=== PATIENT | female | born 1985 | race Caucasian/White ===

== ENCOUNTER 2022-08-07 01:44 | Emergency (ER) | payer OTHER, SELFPAY ==
[2022-08-07 01:48] VITALS: BP 133/82; PULSE 69; RESP 18; TEMP 36.2; O2SAT 98
--- NOTE | 2022-08-07 02:21 | ED.EYEPROB ---
HPI - Eye Problem General Chief complaint: Eye Problems Stated complaint: right eye itchy and red. Time Seen by Provider: 08/07/22 01:58 Source: patient and family Limitations: language barrier (Phone public information specialist used) History of Present Illness HPI Narrative: 37-year-old female with a history of leu-qqpukwq-todvigwbi type 2 diabetes presents to the emergency department with feeling of discomfort in her right eye. Symptoms started about an hour prior to arrival. She reports that she was shaking out a blanket when she suddenly felt pain in the right eye. Has been watering, itchy and uncomfortable since. She denies vision change. She does not think she feels any foreign body. No history of similar symptoms. No history of long-term eye problems. No fevers, headache or other areas of trauma. Otherwise feeling well. Has not tried any eyedrops or other interventions to help with her symptoms. She states her past medical history is only notable for type 2 diabetes. Her only long-term medication is metformin. Denies any prior eye surgeries. No pertinent travel, high risk occupational or home activities for foreign body, metal or infection. ROS is notable for other generalized, HEENT or skin concerns. Notable only for the ocular symptoms as above. Related Data Home Medications Medication Instructions Recorded Confirmed metformin 500 mg tablet,extended 2,000 mg PO DAILY 08/07/22 08/07/22 release 24 hr Allergies Allergy/AdvReac Type Severity Reaction Status Date / Time No Known Allergies Allergy Unknown Verified 08/07/22 01:52 [facility] Medical History (Updated 08/07/22 @ 02:20 by Mireille Alexander MD) Delivery normal (11/04/11) Gestational diabetes mellitus (11/04/11) Surgical History (Updated 01/13/22 @ 18:08 by Lucho Szymanski) History of tubal ligation (2013) Family History (Updated 01/13/22 @ 18:10 by Lucho Szymanski) Mother Heart disease Uterine cancer Father Type 2 diabetes mellitus Family/Other Type 2 diabetes mellitus Social History (Updated 01/13/22 @ 18:10 by Lucho Szymanski) Narrative: single, homemaker, 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, non-smoker, no EtOH Smoking Status: Never smoker How often do you have a drink containing alcohol: never AUDIT-C Alcohol total score: 0 Non-prescribed substance use: denies use Exam Const: Vital Signs, click to edit/add: Vital Signs - 24 hr 08/07/22 01:48 Temperature 97.1 F L Pulse Rate [Left P ulse Oximeter] 69 Respiratory Rate 18 Blood Pressure [Ri ght Upper Arm] 133/82 Pulse Oximetry 98 Documenting provider has reviewed patient's vital signs: yes Common normals: no apparent distress General appearance: cooperative, comfortable and well kempt HENMT: Common normals: normocephalic Head and scalp: normocephalic Face and sinus: normal facial exam Mouth: oral and palatal mucosa normal Eye: Common normals: PERRL and EOMs intact bilaterally Pupil: PERRL Other: Right eye with injected sclera. Conjunctiva with tattoo eye liner which does not appear fresh. Lids and lashes appear normal. On gross inspection, pupils, cornea, iris all normal in appearance. Irrigated with no signs of foreign body. Neck & C-Spine: Common normals: full ROM and no lymphadenopathy Resp: Common normals: normal respiratory effort Effort & inspection: able to speak in complete sentences Psych: Common normals: cooperative and affect normal Appearance: well kempt Skin: Common normals: no rashes or lesions noted General skin exam: no rashes or lesions noted Course Vital Signs Vital signs: Initial Vital Signs Temperature 97.1 F L 08/07/22 01:48 Temperature Source Temporal Artery Scan 08/07/22 01:48 Pulse Rate 69 08/07/22 01:48 Respiratory Rate 18 08/07/22 01:48 Blood Pressure 133/82 08/07/22 01:48 Blood Pressure Mean 99 08/07/22 01:48 Blood Pressure Position Sitting 08/07/22 01:48 Pulse Oximetry 98 08/07/22 01:48 Vital Signs Temperature 97.1 F L 08/07/22 01:48 Pulse Rate 69 08/07/22 01:48 Respiratory Rate 18 08/07/22 01:48 Blood Pressure 133/82 08/07/22 01:48 Pulse Oximetry 98 08/07/22 01:48 Temperature 97.1 F L 08/07/22 01:48 Pulse Rate 69 08/07/22 01:48 Respiratory Rate 18 08/07/22 01:48 Blood Pressure 133/82 08/07/22 01:48 Pulse Oximetry 98 08/07/22 01:48 MDM - Eye Problem MDM Narrative Medical decision making narrative: Procedure: Fluorescein stain. Verbal consent obtained. Right eye is examined with no signs of foreign body, irrigated with saline with no further signs of foreign body. Normal pupillary response and extraocular movements noted. Two drops of tetracaine were inserted in the eye and then fluorescein staining performed. A superficial, broad corneal abrasion is noted mostly on the lower cornea between 5 and 7 concentrating around 6 on the lower half of the pupil. It does appear quite superficial. No evidence of foreign body appreciated again. Additional sweep of the conjunctiva and I structures was performed with no further sign of foreign body. Eye was then irrigated with normal saline to remove . Patient did have improvement of pain from the tetracaine. Erythromycin ointment was applied and use discussed. Diagnosis: Corneal abrasion, mild superficial. Erythromycin 4 times daily for the next 24 hours. Counseled that this should close on its own. Okay to use Tylenol and ibuprofen as needed for discomfort. If not markedly improved in 24 hours, call [facility], contact information discussed. Patient verbalizes understanding and agreement. Alarm symptoms reviewed. Discharge Plan Discharge Clinical Impression: Abrasion, corneal Patient Disposition: Home w/ Parent or Adult Condition: Improved Instructions: Corneal Abrasion (DC) Additional Instructions: On exam, you have a small scratch on the outer layer of your eye, on the cornea. This either happen from the blanket or from a small foreign body that was on the blanket and flew into your eye when you shook the blanket. Thorough examination does not show any sign of foreign body still remaining in the eye. This is good news. The abrasion is not very deep, this should close on its own within 24 hours. It does need antibiotics. Your 1st dose was given here in the emergency department. Continue on this 4 times a day for 24 hours. Slightly blurry vision, sensitivity to light and achiness are common. It is okay to use Tylenol and/or ibuprofen to help with the discomfort. Things should be markedly better by Monday, if not, please call [facility] for an appointment. You may discontinue your antibiotics Monday if your symptoms have resolved. As we discussed, try to keep the antibiotic ointment in the Fridge as it becomes a little harder to use when it is warm. Activity Level: Activity as Tolerated Discharge Diet: Regular Prescriptions: No Action metformin 500 mg tablet extended release 24 hr 2,000 mg PO DAILY Follow Up/Referrals: So Tse MD [Primary Care Provider] - Stand Alone Forms: [employer] Info Instructions
[2022-08-07] MEDS: TETRACAINE 0.5% OPHTH 2 DROP EYE-RIGHT (02:25)
[2022-08-07] MEDS: ERYTHROMYCIN 1 GM TUBE 1 APPLIC EYE-BOTH (02:25)
== END 2022-08-07 02:49 | disposition home or self-care (01) ==
PROVIDERS: Emergency Provider Family Medicine; PCP Family Medicine
DX: S05.01XA Injury of conjunctiva and corneal abrasion without foreign body, right eye, initial encounter (principal)
CPT/HCPCS: 65222; 99282; 99283

== ENCOUNTER 2023-10-06 14:44 | Outpatient (REF) | payer OTHER, SELFPAY ==
--- NOTE | 2023-10-06 14:40 | MM_ITS ---
Patient: ELIZABETH LAN Facility:?[facility] Patient ID:?[id number] Site Patient ID:?[id number]. Site :?[id number] Study:?XRay-Breast Bilateral 3D W/CAD-10/06/2023 3:39:53 PM Ordering Physician:Morteza Final Report: BILATERAL SCREENING MAMMOGRAM WITH COMPUTER-AIDED DETECTION AND TOMOSYNTHESIS TECHNIQUE: CC and MLO views were obtained. These mammographic images have been obtained using full-field digital technique. These mammographic images were interpreted with the benefit of computer-aided detection. Breast Tomosynthesis was used in this interpretation. COMPARISON FILM: 02/11/22, 01/28/21. FINDINGS: There are scattered areas of fibroglandular density. IMPRESSION: There is no radiographic evidence for malignancy. ASSESSMENT: BI-RADS Category 1: Negative RECOMMENDATION: Routine screening mammogram in 1 year. A lay language report of this examination will be provided to the patient. Abdirashid Dela Cruz M.D. Diagnostic Radiologist [email or web address] DSM/sp R& Transcribed: 6:37 p.m. SP/Dictated by: Abdirashid Dela Cruz MD @ 10/09/2023 11:25:00 AM Signed by:?Abdirashid Dela Cruz MD @10/09/2023 8:47:22 PM (Electronic Signature)
--- OUTSIDE RECORDS SUMMARY | 2023-10-06 14:48 | XMS_ITS | Data Portability ---
Author Name Unknown Address [address] [place] [address] Phone [phone] Organization [place] - [employer]ene navarrete [facility] Address [address] [place] [id number] Assessment No assessment recorded. Plan of Treatment Reminders Order Date Submit Date Provider Last Modified By Organization Details Last Modified Time Details Appointments None recorded. Lab HbA1c (hemoglobi n A1c), blood 2023 024 [email or web address] 4 [facility], [address] [place] [address], [address], 4 16:27:31 microalbum in/creatin ine, mass ratio, urine 2023 024 [facility], [address] [place] [address], [address], 4 04:00:52 CBC 2022 023 [facility], [address] [place] [address], [address], 3 13:05:56 hemoglobin A1C/hemogl obin total, QN, blood 2022 023 [facility], [address] [place] [address], [address], 3 14:17:15 glycohemog lobin, total, blood 2022 023 [facility], [address] [place], [place], [address], 3 13:05:56 lipid panel, serum 2022 023 [facility], [address] [place] [address] [place], [address], 3 12:32:13 CBC 2022 023 [facility], [address] [place] [address] [place], [address], 3 12:32:14 lipid panel, serum 2022 023 [facility], [address] [place] [address] [place], [address], 3 16:32:50 HbA1c (hemoglobi n A1c), blood 2022 023 [facility], [address] [place] [address] [place], [address], 3 16:32:50 microalbum in/creatin ine, mass ratio, urine 2022 023 [facility], [address] [place] [address] [place], [address], 3 16:32:50 CMP, serum or plasma 2022 023 [facility], [address] [place] [address] [place], [address], 3 16:30:34 prolactin, serum 2021 022 [facility], [address] [place] [address] [place], [address], 2 09:08:27 glycohemog lobin, total, blood 2021 022 [facility], [address] [place] [address] [place], [address], 21:11:57 lipid panel, serum 2021 [facility], [address] [place] [address] [place], [address], 21:11:57 CBC 2021 [facility], [address] [place] [address] [place], [address], 21:11:57 microalbum in/creatin ine, mass ratio, urine 2021 [facility], [address] [place] [address] [place], [address], 23:56:54 glycohemog lobin, total, blood 2020 [facility], [address] [place] [address] [place], [address], 12:40:51 CBC w/ auto diff 2020 022 [facility], [address] [place] [address] [place], [address], 13:55:44 TSH, serum or plasma 2020 022 [facility], [address] [place] [address] [place], [address], 13:55:44 CBC w/ auto diff 2020 021 [facility], [address] [place] [address] [place], [address], 17:28:21 CMP, serum or plasma 2020 021 [facility], [address] [place], [address], 1 17:28:21 lipid panel, serum 2020 021 [facility], [address] [place], [place] [address], [address], 1 17:28:21 hemoglobin A1C/hemogl obin total, QN, blood 2020 021 [facility], [address] [place], [place] [address], [place], [address], 1 17:26:43 HbA1c (hemoglobi n A1c), blood 2019 020 [facility], [address] [place], [place] [address], [address], 0 14:47:23 CMP, serum or plasma 2019 020 [facility] Not available 0 13:39:58 CBC w/ auto diff 2019 020 [facility] Not available 0 13:39:58 glycohemog lobin, total, blood 2019 020 [facility] Not available 0 16:31:40 lipid panel, serum 2019 020 [facility] Not available 0 13:39:58 Referral optometris t referral 2022 023 Not available 3 11:20:58 community health worker referral 2022 023 Not available 3 21:08:07 community health worker referral - Could I please have an update on Lin's BGs in 2 weeks so we can see how she is responding to her medication increase? No need for other calls/chec k-ins at this time unless CHW believes otherwise. 2021 022 [email or web address] Not available 2 15:04:[address] referral - Please make an appointmen t for Lin to see Dr. Noriega at [facility] to discuss her ongoing heavy menstrual bleeding and 1.9cm polyp. The U/S was done at [facility] so the gyne should be able to review that. Lin is aware of the need for this appointmen t. Not urgent; can certainly wait until the new year. 2020 021 [email or web address] Not available 19:13:37 community care referral 2019 020 [email or web address] Catalina Rose, [facility] [place], [address], 0 16:47:19 community care referral 2019 020 [email or web address] Catalina Rose, [facility] [place], [address], 0 18:24:46 Procedures None recorded. Surgeries None recorded. Imaging MAMMO, screening, bilateral 2023 024 [facility] Not available 4 04:06:29 US, breast, unilateral - Single episode of pus and bloody nipple drainage. No pain. Normal clinical exam. 2021 022 [facility] Not available 2 14:37:58 MAMMO, diagnostic , digital, unilateral - Single episode of pus and bloody nipple drainage. No pain. Normal clinical exam. 2021 022 [facility] Not available 2 14:38:23 US, transvagin al 2020 021 [facility] Not available 1 12:26:12 Medication Orders metformin 500 mg tablet 2023 024 [facility], [address] [place] [address], [address], 4 14:40:10 glyburide 5 mg tablet [address], [address], 3 16:55:17 metformin 500 mg tablet [address], [address], 3 18:10:48 metformin ER 500 mg tablet,ext ended release 24 hr [address], [address], 3 16:55:08 ferrous sulfate 325 mg (65 mg iron) tablet [address], [address], 4 12:41:12 metformin ER 500 mg tablet,ext ended release 24 hr [address], [address], 3 16:55:08 clotrimazo le 1 % topical cream [address], [address], 4 12:41:20 naproxen 250 mg tablet [address], [address], 2 11:34:37 multivitam in with iron tablet [address] [place], [address], 1 12:56:49 Naprosyn 500 mg tablet 2020 021 [email or web address] [facility], [address] [place], [address], 1 13:10:26 metformin ER 500 mg tablet,ext ended release 24 hr 2019 020 [email or web address] Not available 3 16:55:08 aspirin 81 mg tablet,del ayed release 2019 020 [email or web address] Not available 2 12:22:59 metformin ER 500 mg tablet,ext ended release 24 hr 2019 020 [email or web address] Not available 3 16:55:08 Patient TargetsNo targets recorded. Patient Instructions Encounter Date Encounter Id Patient Instructions Last Modified By Organization Details Last Modified Time 11/15/2022 [id number] watch for low glucose with sweating or weakness, have juice on hand [email or web address] Not available 11/16/2022 12:30:43 07/01/2022 [id number] Home Blood Sugar Test: About This Test [email or web address] Not available 07/01/2022 12:09:51 01/26/2022 [id number] secreci??n del pez??n: instrucciones de cuidado - [nipple discharge: care instructions] [email or web address] Not available 01/26/2022 11:44:23 anemia: instrucciones de cuidado - [anemia: care instructions] [email or web address] Not available 01/26/2022 11:44:24 06/30/2021 [id number] 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 The pain itself is not significant. Given the cyclical, short, bilateral presentation, and absence of concerning exam findings, most likely the cause is due to her large breast size and upper body movement (musculoskeletal discomfort) as a result of the physical nature of her job. I told her it is unlikely that there is something of concern. She was advised to get a screening mammogram to be sure. Has f/u with another [facility] provider 01/19 for routine health follow-up/villa armstrong. [email or web address] Not available 01/01/2021 08:51:41 12/25/2019 [id number] go to clinic and sign information release naida Not available 12/25/2019 16:17:04 Reason for Referral Community Care Referral for Type 2 diabetes mellitus without complication patient newly diagnosed and needs glucometer Referring Physician: Renard Newell, Internal Medicine, Encounter Date: 12/25/2019 Community Care Referral for Essential hypertension has a glucometer, needs BP cuff, needs optometry referral for visual problems Referring Physician: Renard Newell, Internal Medicine, Encounter Date: 02/12/2020 Filter Changing Technician Referral for Ab normal uterine bleeding due to endometrial polyp Please make an appointment for Lin to see Dr. Noriega at [facility] to discuss her ongoing heavy menstrual bleeding and 1.9cm polyp. The U/S was done at [facility] so the gyne should be able to review that. Lin is aware of the need for this appointment. Not urgent; can certainly wait until the new year. Referring Physician: Shaina Sam, Family Medicine, Encounter Date: 05/05/2021 Community Health Worker Refe rral for Diabetes mellitus Could I please have an update on Lin's BGs in 2 weeks so we can see how she is responding to her medication increase? No need for other calls/check-ins at this time unless CHW believes otherwise. Referring Physician: Shaina Sam, Family Medicine, Encounter Date: 06/30/2021 Community Health Worker Refe rral for Type II diabetes mellitus uncontrolled Referring Physician: Mary Jo Freedman [facility], Internal Medicine, Encounter Date: 07/01/2022 Deployment Engineer Referral for Typ e II diabetes mellitus uncontrolled Referring Physician: Renard Newell, Internal Medicine, Encounter Date: 11/15/2022 Results Created Date Observation Date Name Description Value Unit Range Abnormal Flag LastModifiedBy Organization Detail LastModifiedTime 05/06/20 20 05/06/2020 HbA1c (hemo globi n A1c), blood hemoglobin A1C 9.8 high Not Available [place] [facility] [address] [place] [address] [place], [address], 05/08/2020 09:28:17 12/23/19 21 12/22/2020 CBC w/ auto diff creatinine 0.67 Not Available [facility] [address] [place] [address] [place], [address], 12/23/2020 17:28:21 12/23/19 21 12/22/2020 CBC w/ auto diff ALT 63 Not Available [facility] [address] [place] [address] [place], [address], 12/23/2020 17:28:21 12/23/19 21 12/22/2020 CBC w/ auto diff total cholesterol 165 Not Available [place] [facility] [address] [place] [address] [place], [address], 12/23/2020 17:28:21 12/23/19 21 12/22/2020 CBC w/ auto diff triglyceride s 130 Not Available [place] [facility] [address] [place] [address] [place], [address], 12/23/2020 17:28:21 12/23/19 21 12/22/2020 CBC w/ auto diff HDL 36 Not Available [facility] [address] [place] [address] [place], [address], 12/23/2020 17:28:21 12/23/19 21 12/22/2020 CBC w/ auto diff LDL 103 Not Available [facility] [address] [place] [address] [place], [address], 12/23/2020 17:28:21 12/23/19 21 12/22/2020 CBC w/ auto diff white blood count 5.7 Not Available [place] [facility] [address] [place] [address] [place], [address], 12/23/2020 17:28:21 12/23/19 21 12/22/2020 CBC w/ auto diff hemoglobin 11.3 Not Available [facility] [address] [place] [address] [place], [address], 12/23/2020 17:28:21 12/23/19 21 12/22/2020 CBC w/ auto diff platelet count 277 Not Available [place] [facility] [address] [place] [address] [place], [address], 12/23/2020 17:28:21 12/23/19 21 12/22/2020 lipid panel , serum creatinine 0.67 Not Available [facility] [address] [place] [address] [place], [address], 12/23/2020 17:28:21 12/23/19 21 12/22/2020 lipid panel , serum ALT 63 Not Available [facility] [address] [place] [address] [place], [address], 12/23/2020 17:28:21 12/23/19 21 12/22/2020 lipid panel , serum total cholesterol 165 Not Available [place] [facility] [address] [place] [address] [place], [address], 12/23/2020 17:28:21 12/23/19 21 12/22/2020 lipid panel , serum triglyceride s 130 Not Available [place] [facility] [address] [place] [address] [place], [address], 12/23/2020 17:28:21 12/23/19 21 12/22/2020 lipid panel , serum HDL 36 Not Available [facility] [address] [place] [address] [place], [address], 12/23/2020 17:28:21 12/23/19 21 12/22/2020 lipid panel , serum LDL 103 Not Available [facility] [address] [place] [address] [place], [address], 12/23/2020 17:28:21 12/23/19 21 12/22/2020 lipid panel , serum white blood count 5.7 Not Available [place] [address] [place] [address] [place], [address], 12/23/2020 17:28:21 12/23/19 21 12/22/2020 lipid panel , serum hemoglobin 11.3 Not Available [facility] [address] [place] [address] [place], [address], 12/23/2020 17:28:21 12/23/19 21 12/22/2020 lipid panel , serum platelet count 277 Not Available [facility] [address] [place] [address] [place], [address], 12/23/2020 17:28:21 12/23/1912/22/2020 CMP, serum or plasm a creatinine 0.67 Not Available [address] [place], [address], 12/22/2020 20:28:08 12/23/19 21 12/22/2020 CMP, serum or plasm a ALT 63 Not Available [facility] [address] [place] [address] [place], [address], 12/22/2020 20:28:08 12/23/1912/22/2020 CMP, serum or plasm a total cholesterol 165 Not Available [place] [facility] [address] [place] [address] [place], [address], 12/22/2020 20:28:08 12/23/19 21 12/22/2020 CMP, serum or plasm a triglyceride s 130 Not Available [place] [facility] [address] [place] [address] [place], [address], 12/22/2020 20:28:08 12/23/19 21 12/22/2020 CMP, serum or plasm a HDL 36 Not Available [facility] [address] [place] [address] [place], [address], 12/22/2020 20:28:08 12/23/19 21 12/22/2020 CMP, serum or plasm a LDL 103 Not Available [facility] [address] [place] [address] [place], [address], 12/22/2020 20:28:08 12/23/19 21 12/22/2020 CMP, serum or plasm a white blood count 5.7 Not Available [place] [facility] [address] [place] [address] [place], [address], 12/22/2020 20:28:08 12/23/19 21 12/22/2020 CMP, serum or plasm a hemoglobin 11.3 Not Available [facility] [address] [place] [address] [place], [address], 12/22/2020 20:28:08 12/23/19 21 12/22/2020 CMP, serum or plasm a platelet count 277 Not Available [place] [facility] [address] [place] [address] [place], [address], 12/22/2020 20:28:08 12/24/19 21 12/23/2020 hemog lobin A1C/h emogl obin total , QN, blood hemoglobin A1C 9.7 Not Available [place] [facility] [address] [place] [address] [address] [place], [address], 12/23/2020 17:08:18 06/30/19 22 06/30/2021 HbA1c (hemo globi n A1c), blood HbA1c 10.5 Not Available [facility] [address] [place], [address], 06/30/2021 12:49:46 06/30/19 22 06/30/2021 CBC w/ auto diff TSH value only 1.63 Not Available Not Available 13:55:44 06/30/19 22 06/30/2021 CBC w/ auto diff WBC 5.9 Not Available Not Available 06/22 13:55:44 06/30/19 22 06/30/2021 CBC w/ auto diff HGB 13.0 Not Available Not Available 06/22 13:55:44 06/30/19 22 06/30/2021 CBC w/ auto diff plt 244 Not Available Not Available 06/22 13:55:44 06/30/19 22 06/30/2021 TSH, serum or plasm a TSH value only 1.63 Not Available Not Available 12:22:14 06/30/19 22 06/30/2021 TSH, serum or plasm a WBC 5.9 Not Available Not Available 06/22 12:22:14 06/30/19 22 06/30/2021 TSH, serum or plasm a HGB 13.0 Not Available Not Available 06/22 12:22:14 06/30/19 22 06/30/2021 TSH, serum or plasm a plt 244 Not Available Not Available 06/22 12:22:14 02/12/20 22 02/11/2022 CBC total cholesterol 194 Not Available [place] [facility] [address] [facility] [place], [address], 02/13/2022 21:11:57 02/12/20 22 02/11/2022 CBC triglyceride s 158 high Not Available [place] [facility] [address] [facility] [place], [address], 02/13/2022 21:11:57 02/12/20 22 02/11/2022 CBC HDL 42 low Not Available [place] [facility] [address] [facility] [place], [address], 02/13/2022 21:11:57 02/12/20 22 02/11/2022 CBC LDL 120 high Not Available [place] [facility] [address] [place] [address] [place], [address], 02/13/2022 21:11:57 02/12/20 22 02/11/2022 CBC hemoglobin A1C 10.41 high Not Available [place] [facility] [address] [place] [address] [place], [address], 02/13/2022 21:11:57 02/12/20 22 02/11/2022 CBC white blood count 6.51 Not Available [place] [facility] [address] [place] [address] [place], [address], 02/13/2022 21:11:57 02/12/20 22 02/11/2022 CBC hemoglobin 224 Not Availa ble [place] [facility] [address] [place] [address] [place], [address], 02/13/2022 21:11:57 02/12/20 22 02/11/2022 CBC platelet count 12.9 Not Available [place] [facility] [address] [place] [address] [place], [address], 02/13/2022 21:11:57 02/12/20 22 02/11/2022 glyco hemog lobin , total , blood total cholesterol 194 Not Available [place] [facility] [address] [place] [address] [place], [address], 02/13/2022 21:11:57 02/12/20 22 02/11/2022 glyco hemog lobin , total , blood triglyceride s 158 high Not Available [place] [facility] [address] [place] [address] [place], [address], 02/13/2022 21:11:57 02/12/20 22 02/11/2022 glyco hemog lobin , total , blood HDL 42 low Not Available [facility] [address] [place], [address], 02/13/2022 21:11:57 02/12/20 22 02/11/2022 glyco hemog lobin , total , blood LDL 120 high Not Available [facility] [address] [place] [address] [place], [address], 02/13/2022 21:11:57 02/12/20 22 02/11/2022 glyco hemog lobin , total , blood hemoglobin A1C 10.41 high Not Available [place] [facility] [address] [place] [address] [place], [address], 02/13/2022 21:11:57 02/12/20 22 02/11/2022 glyco hemog lobin , total , blood white blood count 6.51 Not Available [place] [facility] [address] [place] [address] [place], [address], 02/13/2022 21:11:57 02/12/20 22 02/11/2022 glyco hemog lobin , total , blood hemoglobin 224 Not Available [facility] [address] [place] [address] [place], [address], 02/13/2022 21:11:57 02/12/20 22 02/11/2022 glyco hemog lobin , total , blood platelet count 12.9 Not Available [place] [facility] [address] [place] [address] [place], [address], 02/13/2022 21:11:57 02/12/20 22 02/11/2022 lipid panel , serum total cholesterol 194 Not Available [place] [facility] [address] [place] [address] [place], [address], 02/11/2022 14:18:40 02/12/20 22 02/11/2022 lipid panel , serum triglyceride s 158 high Not Available [place] [facility] [address] [place] [address] [place], [address], 02/11/2022 14:18:40 02/12/20 22 02/11/2022 lipid panel , serum HDL 42 low Not Available [facility] [address] [place] [address] [place], [address], 02/11/2022 14:18:40 02/12/20 22 02/11/2022 lipid panel , serum LDL 120 high Not Available [facility] [address] [place] [address] [place], [address], 02/11/2022 14:18:40 02/12/20 22 02/11/2022 lipid panel , serum hemoglobin A1C 10.41 high Not Available [place] [facility] [address] [place] [address] [place], [address], 02/11/2022 14:18:40 02/12/20 22 02/11/2022 lipid panel , serum white blood count 6.51 Not Available [place] [facility] [address] [place] [address] [place], [address], 02/11/2022 14:18:40 02/12/20 22 02/11/2022 lipid panel , serum hemoglobin 224 Not Available [facility] [address] [place] [address] [place], [address], 02/11/2022 14:18:40 02/12/20 22 02/11/2022 lipid panel , serum platelet count 12.9 Not Available [place] [facility] [address] [place] [address] [place], [address], 02/11/2022 14:18:40 07/07/19 23 07/07/2022 micro album in/cr eatin ine, mass ratio , urine creatine 0.4 Not Available [facility] [address] [place] [address] [place], [address], 07/07/2022 16:32:50 07/07/19 23 07/07/2022 micro album in/cr eatin ine, mass ratio , urine ALT 39 Not Available [facility] [address] [place] [address] [place], [address], 07/07/2022 16:32:50 07/07/19 23 07/07/2022 micro album in/cr eatin ine, mass ratio , urine total cholesterol 200 high Not Available [place] [facility] [address] [place] [address] [place], [address], 07/07/2022 16:32:50 07/07/19 23 07/07/2022 micro album in/cr eatin ine, mass ratio , urine triglyceride s 176 high Not Available [place] [facility] [address] [place] [address] [place], [address], 07/07/2022 16:32:50 07/07/19 23 07/07/2022 micro album in/cr eatin ine, mass ratio , urine HDL 38 low Not Available [facility] [address] [place] [address] [place], [address], 07/07/2022 16:32:50 07/07/19 23 07/07/2022 micro album in/cr eatin ine, mass ratio , urine LDL 127 high Not Available [facility] [address] [place] [address] [place], [address], 07/07/2022 16:32:50 07/07/19 23 07/07/2022 micro album in/cr eatin ine, mass ratio , urine A1C hemoglobin 8.79 high Not Available [place] [facility] [address] [place] [address] [place], [address], 07/07/2022 16:32:50 07/07/19 23 07/07/2022 micro album in/cr eatin ine, mass ratio , urine microalbumin ratio 320 high Not Available [place] [facility] [address] [place] [address] [place], [address], 07/07/2022 16:32:50 07/07/19 23 07/07/2022 HbA1c (hemo globi n A1c), blood creatine 0.4 Not Available [facility] [address] [facility] [place], [address], 07/07/2022 16:32:50 07/07/19 23 07/07/2022 HbA1c (hemo globi n A1c), blood ALT 39 Not Available [facility] [place], [address], 07/07/2022 16:32:50 07/07/19 23 07/07/2022 HbA1c (hemo globi n A1c), blood total cholesterol 200 high Not Available [place] [facility] [place], [address], 07/07/2022 16:32:50 07/07/19 23 07/07/2022 HbA1c (hemo globi n A1c), blood triglyceride s 176 high Not Available [place] [facility] [place], [address], 07/07/2022 16:32:50 07/07/19 23 07/07/2022 HbA1c (hemo globi n A1c), blood HDL 38 low Not Available [facility] [place], [address], 07/07/2022 16:32:50 07/07/19 23 07/07/2022 HbA1c (hemo globi n A1c), blood LDL 127 high Not Available [facility] [place], [address], 07/07/2022 16:32:50 07/07/19 23 07/07/2022 HbA1c (hemo globi n A1c), blood A1C hemoglobin 8.79 high Not Available [place] [facility] [place], [address], 07/07/2022 16:32:50 07/07/19 23 07/07/2022 HbA1c (hemo globi n A1c), blood microalbumin ratio 320 high Not Available [place] [facility] [address] [place] [address] [place], [address], 07/07/2022 16:32:50 07/07/19 23 07/07/2022 lipid panel , serum creatine 0.4 Not Available [facility] [address] [place] [address] [place], [address], 07/07/2022 16:32:49 07/07/19 23 07/07/2022 lipid panel , serum ALT 39 Not Available [facility] [address] [place] [address] Mack Hallibabob CARL[place], [address], 07/07/2022 16:32:49 07/07/19 23 07/07/2022 lipid panel , serum total cholesterol 200 high Not Available [facility] [address] [place] [address] Mack Nixonibault CARLOS, [address], 07/07/2022 16:32:49 07/07/19 23 07/07/2022 lipid panel , serum triglyceride s 176 high Not Available [place] [facility] [address] [place] [address] Mack Hallibabob CARLOS, [address], 07/07/2022 16:32:49 07/07/19 23 07/07/2022 lipid panel , serum HDL 38 low Not Available [facility] [address] [place] [address] Mack HallCARLOS [place], [address], 07/07/2022 16:32:49 07/07/19 23 07/07/2022 lipid panel , serum LDL 127 high Not Available [facility] [address] [place] [address] Mack Nixonibabob CARLOS, [address], 07/07/2022 16:32:49 07/07/19 23 07/07/2022 lipid panel , serum A1C hemoglobin 8.79 high Not Available [place] [facility] [address] [place] [address] Mack NixonCARLOS [place], [address], 07/07/2022 16:32:49 07/07/19 23 07/07/2022 lipid panel , serum microalbumin ratio 320 high Not Available [address] [place], [address], 07/07/2022 16:32:49 07/07/19 23 07/07/2022 CMP, serum or plasm a creatine 0.4 Not Available [address] [place], [address], 07/07/2022 10:48:17 07/07/19 23 07/07/2022 CMP, serum or plasm a ALT 39 Not Available [address] [place], [address], 07/07/2022 10:48:17 07/07/19 23 07/07/2022 CMP, serum or plasm a total cholesterol 200 high Not Available [address] [place], [address], 07/07/2022 10:48:17 07/07/19 23 07/07/2022 CMP, serum or plasm a triglyceride s 176 high Not Available [address] [place], [address], 07/07/2022 10:48:17 07/07/19 23 07/07/2022 CMP, serum or plasm a HDL 38 low Not Available [address] [place], [address], 07/07/2022 10:48:17 07/07/19 23 07/07/2022 CMP, serum or plasm a LDL 127 high Not Available [address] [place], [address], 07/07/2022 10:48:17 07/07/19 23 07/07/2022 CMP, serum or plasm a A1C hemoglobin 8.79 high Not Available [place] [facility] [address] [place], [address], 07/07/2022 10:48:17 07/07/19 23 07/07/2022 CMP, serum or plasm a microalbumin ratio 320 high Not Available [place] [facility] [address] [facility] [place], [address], 07/07/2022 10:48:17 01/28/20 23 01/27/2023 CBC total cholesterol 171 Not Available [facility] [address] [place], [address], 01/27/2023 12:32:14 01/28/20 23 01/27/2023 CBC triglyceride s 199 high Not Available [facility] [address] [place], [address], 01/27/2023 12:32:14 01/28/20 23 01/27/2023 CBC HDL 34 low Not Available [facility] [address] [place], [address], 01/27/2023 12:32:14 01/28/20 23 01/27/2023 CBC LDL 97 Not Available [facility] [address] [place], [address], 01/27/2023 12:32:14 01/28/20 23 01/27/2023 lipid panel , serum total cholesterol 171 Not Available [facility] [address] [place], [address], 01/27/2023 11:14:31 01/28/20 23 01/27/2023 lipid panel , serum triglyceride s 199 high Not Available [facility] [address] [place], [address], 01/27/2023 11:14:31 01/28/20 23 01/27/2023 lipid panel , serum HDL 34 low Not Available [facility] [address] [place], [address], 01/27/2023 11:14:31 01/28/20 23 01/27/2023 lipid panel , serum LDL 97 Not Available [facility] [address] [place], [address], 01/27/2023 11:14:31 01/28/20 23 01/27/2023 glyco hemog lobin , total , blood WBC 6.35 Not Available [facility] [address] [place], [address], 01/27/2023 13:05:56 01/28/20 23 01/27/2023 glyco hemog lobin , total , blood HGB 12.2 Not Available [facility] [address] [place], [address], 01/27/2023 13:05:56 01/28/20 23 01/27/2023 glyco hemog lobin , total , blood plt 252 Not Available [facility] [address] [place], [address], 01/27/2023 13:05:56 01/28/20 23 01/27/2023 CBC WBC 6.35 Not Available [facility] [address] [place], [address], 01/27/2023 11:49:25 01/28/20 23 01/27/2023 CBC HGB 12.2 Not Available [facility] [address] [place], [address], 01/27/2023 11:49:25 01/28/20 23 01/27/2023 CBC plt 252 Not Available [facility] [address] [place], [address], 01/27/2023 11:49:25 01/28/20 23 01/27/2023 hemog lobin A1C/h emogl obin total , QN, blood A1C 8.14 high Not Available [facility] [address] [place], [address], 01/27/2023 14:11:01 01/31/20 21 01/28/2021 MAMMO , diagn ostic , bilat eral No observ ation record ed. [address] Radiology Department [address] [place], [address], 03/08/2021 14:04:54 04/13/20 21 03/19/2021 US, trans vagin al No observ ation record ed. [address] Radiology Department [address] [place], [address], 05/05/2021 12:58:17 02/12/20 22 02/11/2022 US, breas t, unila teral No observ ation record ed. [address] Radiology Department [address] [place], [address], 02/14/2022 17:04:37 02/12/20 22 02/11/2022 MAMMO , diagn ostic , digit al, unila teral No observ ation record ed. [address] Radiology Department [address] [place], [address], 02/14/2022 17:04:38 Result Notes None recorded. Problems Name Status Onset Date Resolution Date Notes Provider Name and Address Organization Details Recorded Time Scattered fibroglandula r densities Active 2020 Assoc w/ breast pain. Mammo WNL 01/28/21. Recommend age-appropria te screening. Shaina Sam NP [address] [place], [address], [employer] 2 11:55:49 Diabetes mellitus Completed 202001/26/2022 Removal Reason: Uncontrolled now. Shaina Sam NP [address] [place], [address], [employer] 2 11:56:01 Anemia Active 2020 Shaina Sam NP [address] [place], [address], [place] [facility] 2 11:55:01 Menorrhagia Completed 202001/26/2022 Resolved with Lng IUD Placement. Shaina Sam NP [address] [facility] [place], [address], [facility] 2 11:55:23 Obesity Active 2020 Shaina Sam NP [address] [facility] [place], [address], [facility] 2 11:55:39 Polyp of corpus uteri Active 2020 Shaina Sam NP [address] [place], [address], [facility] 1 12:55:34 Type II diabetes mellitus uncontrolled Active 2021 Shaina Sam NP [address] [place], [address], [facility] 2 11:55:06 Discharge from nipple Active 2021 Shaina Sam NP [address] [place], [address], [facility] 2 11:55:36 Type 2 diabetes mellitus Active 2022 Renard Newell MD [address] [place], [address], [facility] 15:31:10 Problem Notes None recorded. Procedures Surgical History Date Name Laterality Status Provider Name and Address Organization Details Recorded Time 04/08/2019 Date of Last Pap Smear completed Elaine Dumont, LIANET [address] [place], [address], [facility] 02/01/2021 14:02:03 Imaging Results Imaging Date Name Status LastModified by Organization Details LastModified Time 01/28/2021 MAMMO, diagnostic, bilateral completed [address] Radiology Department [address] [place], [address], 03/08/2021 14:04:54 03/19/2021 US, transvaginal completed [email or web address] Radiology Department [address] [place], [address], 05/05/2021 12:58:17 02/11/2022 US, breast, unilateral completed [email or web address] Radiology Department [address] [place], [address], 02/14/2022 17:04:37 02/11/2022 MAMMO, diagnostic, digital, unilateral completed [address] Radiology Department [address] [place], [address], 02/14/2022 17:04:38 Procedure Notes None recorded. Medical Equipment None Reported. Allergies No known drug allergies Medications Name Sig Start Date Stop Date Status Note LastModified by Organization Details LastModified Time tab-a-vit e/iron tabs TAKE ONE TABLET BY MOUTH EVERY DAY 06/30 completed Not Available Not Available Not Available Mirena 21 mcg/24 hr (up to 8 years) 52 mg intrauter ine device Take by intraute rine route. 2020 active Not Available Not Available Not Avai lable metformin 500 mg tablet TAKE 2 TABLETS BY MOUTH TWICE A DAY. active Not Available Not Available No t Available Aviane 0.1 mg-20 mcg tablet take 1 tablet by oral route every day 11/19 completed Not Available Not Available Not Available atorvasta tin 10 mg tablet take 1 tablet by oral route every day 04/08 completed Not Available Not Available Not Available glyburide 5 mg tablet TAKE 1 TABLET BY MOUTH EVERY DAY active Not Available Not Available No t Available naproxen 250 mg tablet TAKE 2 TABLETS BY MOUTH AT ONSET OF MENSES THEN 1 TABLET TWICE DAILY FOR 1ST 5 DAYS OF MENSES. TAKE WITH FOOD AND WATER 01/26 completed Not Available Not Available Not Available ciproflox acin 250 mg tablet TAKE ONE TABLET BY MOUTH TWICE A DAY FOR 5 DAYS 03/08 completed Not Available Not Available Not Available sulfameth oxazole 800 mg-trimet hoprim 160 mg tablet 05/01 completed Not Available Not Available Not Available aspirin 81 mg tablet,de layed release TAKE ONE TABLET BY MOUTH EVERY DAY 06/30 completed Not Available Not Available Not Available Detrol 1 mg tablet take 1 tablet by oral route 2 times every day 01/12 completed Not Available Not Available Not Available mefenamic acid 250 mg capsule take 2 capsule by oral route once once followed by 1 capsule (250 mg) every 6 hours as needed usually not to exceed 3 days 01/12 completed Not Available Not Available Not Available metformin ER 500 mg tablet,ex tended release 24 hr TAKE FOUR TABLETS BY MOUTH ONCE A DAY 02/07 completed Not Available Not Available Not Available naproxen 500 mg tablet TAKE ONE TABLET BY MOUTH TWICE A DAY 03/08 completed Not Available Not Available Not Available multivita min with iron tablet Take 1 tablet every day by oral route. 05/05 completed Not Available Not Available Not Available nitrofura ntoin monohydra te/macroc rystals 100 mg capsule 03/08 completed Not Available Not Available Not Available Athlete's Foot (clotrima zole) 1 % topical cream APPLY TO THE AFFECTED AND SURROUND ING AREAS OF SKIN BY TOPICAL ROUTE 2 TIMES PER DAY IN THE MORNING AND EVENING 07/23 completed not using anymore Not Available Not Available Not Available FeroSul 325 mg (65 mg iron) tablet TAKE 1 TABLET EVERY DAY BY ORAL ROUTE. 07/23 completed not taking anymore Not Available Not Available Not Available Vitals Date Recorded Body weight Systolic blood pressure Diastolic blood pressure Provider Name and Address Organization Details Last Updated DateTime 12/07/2020 00152.29 g 123 mm[Hg] 80 mm[Hg] Renard Newell MD [address] [place], [address], [place] [employer] 12/07/2020 17:08:05 Date Recorded Body weight Systolic blood pressure Diastolic blood pressure Provider Name and Address Organization Details Last Updated DateTime 06/30/2021 532165.28 g 110 mm[Hg] 70 mm[Hg] Shaina Sam NP [address] [place], [address], [facility] 06/30/2021 12:28:44 Date Recorded Body temperature Heart rate Body weight Body mass index (BMI) Body height Systolic blood pressure Diastolic blood pressure Provider Name and Address Organization Details Last Updated DateTime 2 97.4 [degF] 91 /min 883071. 09 g 45.7 kg/m2 157.48 cm 111 mm[Hg] 69 mm[Hg] Shaina Sam NP [address] [place], [address], [facility] 2 11:38:51 Date Recorded Body height Body temperature Respiratory rate Heart rate Body mass index (BMI) Body weight Systolic blood pressure Diastolic blood pressure Provider Name and Address Organization Details Last Updated DateTime 3 157.48 cm 97.4 [degF] 18 /min 77 /min 44.4 kg/m2 363335. 95 g 94 mm[Hg] 65 mm[Hg] MARY JO HELMS MD [address] [place], [address], [facility] 3 12:07:00 Date Recorded Body height Body mass index (BMI) Body weight Heart rate Systolic blood pressure Diastolic blood pressure Provider Name and Address Organization Details Last Updated DateTime 3 157.48 cm 45 kg/m2 308282. 44 g 69 /min 116 mm[Hg] 70 mm[Hg] Lisa Lechuga [facility] 3 17:42:30 Date Recorded Body height Body mass index (BMI) Body weight Oxygen saturation Oxygen saturation in Arterial blood by Pulse oximetry Heart rate Systolic blood pressure Diastolic blood pressure Provider Name and Address Organization Details Last Updated DateTime 4 154.25 cm 47.5 kg/m2 643295. 58 g 97 % 97 % 76 /min 116 mm[Hg] 73 mm[Hg] ALYCIA Armstrong [address] [place], [address], [facility] 4 12:34:41 Date Recorded Systolic blood pressure Diastolic blood pressure Provider Name and Address Organization Details Last Updated DateTime 02/16/2015 101 mm[Hg] 60 mm[Hg] Not Available [facility] 12/09/2019 12:57:37 Date Recorded Systolic blood pressure Diastolic blood pressure Provider Name and Address Organization Details Last Updated DateTime 12/17/2014 104 mm[Hg] 65 mm[Hg] Not Available [facility] 12/09/2019 12:57:37 Date Recorded Systolic blood pressure Diastolic blood pressure Provider Name and Address Organization Details Last Updated DateTime 07/01/2015 108 mm[Hg] 78 mm[Hg] Not Available [facility] 0 12/09/2019 12:57:38 Date Recorded Systolic blood pressure Diastolic blood pressure Provider Name and Address Organization Details Last Updated DateTime 04/13/2015 109 mm[Hg] 67 mm[Hg] Not Available [facility] 0 12/09/2019 12:57:38 Date Recorded Systolic blood pressure Diastolic blood pressure Provider Name and Address Organization Details Last Updated DateTime 11/19/2018 117 mm[Hg] 72 mm[Hg] Not Available [facility] 12/09/2019 12:57:38 Date Recorded Systolic blood pressure Diastolic blood pressure Provider Name and Address Organization Details Last Updated DateTime 03/26/2019 118 mm[Hg] 71 mm[Hg] Not Available [facility] 12/09/2019 12:57:38 Date Recorded Systolic blood pressure Diastolic blood pressure Provider Name and Address Organization Details Last Updated DateTime 04/08/2019 126 mm[Hg] 64 mm[Hg] Not Available [facility] 0 12/09/2019 12:57:38 Date Recorded Systolic blood pressure Diastolic blood pressure Provider Name and Address Organization Details Last Updated DateTime 01/12/2015 94 mm[Hg] 64 mm[Hg] Not Available [facility] 12:57:38 Date Recorded Systolic blood pressure Diastolic blood pressure Provider Name and Address Organization Details Last Updated DateTime 12/23/2013 98 mm[Hg] 60 mm[Hg] Not Available [facility] 12:57:38 Social History Question Answer Notes LastModified by Organizat ion Details LastModified Time Tobacco Smoking Status Never Smoker Shaina Sam, [employer] [address] [place], [address], [facility] 01/26/2022 11:59:00 What Is Your Level Of Alcohol Consumption? None [email or web address] Information not available 01/26/2022 Are You Currently Employed? Yes Information not available 01/26/2022 Who Is Your Employer? [employer]. Information not available 01/26/2022 Sex: Female Functional Status None recorded. Mental Status None recorded. Family History Relationship Description Onset Age of this Age Resolved Age Notes Father Diabetes mellitus di ed of dm Brother Diabetes mellitus Sister Diabetes mellitus Daughter Diabetes mellitus Mother Hypertensive disorder Mother Malignant neoplasm o f uterus 35 Medical History No medical history recorded. Gynecological History Statement/Question Response Menses Monthly N Date of Last Pap Smear 04/08/2019 Current Control Method IUD Obstetrics History GPAL:G 0 P 0 0 0 0 Past Encounters Encounter ID Performer Location Encounter Start Date Encounter Closed Date Diagnosis/Indication Diagnosis SNOMED-CT Code [id number] Renard Newell MD [facility] [address] [place] [address] 12/25/2019 15:29:51 01/01/2020 14:53:25 Type 2 diabetes mellitus without complication 859432039 [id number] Renard Newell MD [facility] [address] [place] [address] 01/13/2020 16:34:23 01/13/2020 18:21:38 Type 2 diabetes mellitus without complication 347512153 Type 2 eunice betes mellitus 63549563 Diabetes mellitus 101168 09 [id number] Elaine Dumont NP [facility] [address] [place] [address] 02/10/2020 11:26:40 02/10/2020 14:15:04 [id number] Renard Newell MD [facility] [address] [place] [id number] 02/12/2020 14:05:27 02/12/2020 15:51:37 Type 2 diabetes mellitus without complication 134748844 Essential hypertension 40951034 [id number] Renard Newell MD [facility] [address] [place] [address] 05/19/2020 17:26:06 05/19/2020 19:28:32 Type 2 diabetes mellitus without complication [id number] Renard Newell MD [facility] [address] [place] [address] 06/16/2020 17:49:56 06/16/2020 19:55:06 Type 2 diabetes mellitus without complication 312746529 [id number] [facility] [address] [place] [address] 12/07/2020 15:00:18 12/07/2020 19:08:39 Pain in left knee [id number] SHANTANU BANUELOS, [facility] [address] [place] [address] [facility] [id number] 12/31/2020 10:22:34 12/31/2020 11:14:50 Mastodynia of bilateral breasts 3395823507845 9109 Pain of breast 33486600 [id number] Shaina Sam NP [facility] [address] [place] [id number] 03/08/2021 12:06:32 03/08/2021 13:23:07 Menorrhagia 116091361 Diabetes mellitus 144430 09 Scattered fibroglandular densities 273503236 [id number] Shaina Sam NP [facility] [address] [place] [address] 05/05/2021 11:54:21 05/05/2021 18:01:48 Abnormal uterine bleeding due to endometrial polyp 4453595388865 9103 Type 2 eunice betes mellitus 97791444 Anemia 530196397 [id number] Shaina Sam NP [facility] [address] [place] [id number] 06/30/2021 11:59:45 10/11/2021 16:45:53 Menorrhagia 735929717 Tinea pedis 0200337 Diabetes mellitus 312977 09 Anemia 490094407 Obesity 533857378 Loss of hair 942919631 [id number] Shaina Sam NP [facility] [address] [place] [address] 01/26/2022 11:26:21 01/26/2022 12:22:49 Discharge from nipple 60259230 Anemia 670375752 Type II di abetes mellitus uncontrolled 125236907 [id number] MARY JO HELMS MD [facility] [address] [place] [address] 07/01/2022 11:42:01 07/01/2022 12:18:09 Type II diabetes mellitus uncontrolled 807340009 Diabetes mellitus 061441 09 Hyperglyce jenelle due to type 2 diabetes mellitus 9810447258338 09 [id number] Renard Newell MD [facility] [address] [place] [address] 11/15/2022 17:38:00 11/15/2022 18:11:25 Type II diabetes mellitus uncontrolled 980227318 Microalbuminuria 5749418 06 Anemia 049046567 [id number] ALYCIA Armstrong [facility] [address] [place] [address] 07/24/2023 12:26:23 07/24/2023 13:02:15 Type 2 diabetes mellitus 40546777 Microalbum inuria due to type 2 diabetes mellitus 5748018659862 2 Screening for malignant neoplasm of breast 818075985 Health Concerns Section Related Observation LastModified by Organization Detai ls LastModified Time None Recorded Concern Status LastModified by Organization Details LastModified Time None Recorded Advance Directives Directive None Recorded Payers Encounter Date Sequence Insurance Name Policy Number Policy Kennedy Covered Member ID Kennedy Member ID Guarantor Name 07/24/2023 [employer] S[employer] - [place] [employer] Lin Pozo [id number] Lin Pozo 11/15/2022 SLIDING FEE SCHEDULE - DISCOUNT Lin Pozo 07/01/2022 SLIDING FEE SCHEDULE - DISCOUNT Lin Pozo 01/26/2022 SLIDING FEE SCHEDULE - DISCOUNT Lin Pozo 06/30/2021 SLIDING FEE SCHEDULE - DISCOUNT Lin Pozo 05/05/2021 SLIDING FEE SCHEDULE - DISCOUNT Lin Pozo 03/08/2021 SLIDING FEE SCHEDULE - DISCOUNT Lin Pozo 12/31/2020 SLIDING FEE SCHEDULE - DISCOUNT Lin Pozo 12/07/2020 SLIDING FEE SCHEDULE - DISCOUNT Lin Pozo 06/16/2020 SLIDING FEE SCHEDULE - DISCOUNT Lin Pozo 05/19/2020 SLIDING FEE SCHEDULE - DISCOUNT Lin Pozo 02/12/2020 SLIDING FEE SCHEDULE - DISCOUNT Lin Pozo 02/10/2020 SLIDING FEE SCHEDULE - DISCOUNT Lin Pozo 01/13/2020 SLIDING FEE SCHEDULE - DISCOUNT Lin Pozo 12/25/2019 SLIDING FEE SCHEDULE - DISCOUNT Lin Lawrence Pozo Notes Date Note Type Note Provider Name and Address Organization Details Recorded Time 12/25/2019 text/html HPI Notes: went to ER in [place], six children requesting glucometer Renard Newell MD [address] [place] [address], [phone], [facility] 01/13/2020 17:51:02 01/13/2020 text/html HPI Notes: has a glucometer, readings around 150, has booklet Renard Newell MD [address] [place] [address], [address], [facility] 01/13/2020 18:13:26 02/12/2020 text/html HPI Notes: has b een dieting, exercising, six children, PAP about a year ago, paredes had tubal Renard Newell MD [address] [place] [address], [phone], [facility] 02/12/2020 15:19:39 05/19/2020 text/html HPI Notes: compl ains of fatigue, six children at home (15, 16. 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 Notes: Pt presents with bilateral mastodynia. Waxes and wanes over the last month. She works at a [employer] plant where she is very active with her upper body. No discharge or lumps noted. SHANTANU BANUELOS, ANP-BC [address] [place], [address], [facility] 01/01/2021 08:51:48 03/08/2021 text/html HPI Notes: Saida chacko is a American-speaking 36 year old woman who presents today to review her recent UTIs and increasingly heavy menstrual periods. Dwain has T2DM and is cared for by Dr. Newell. Over December and January, Lin was seen in the [place] ER 3 times for UTI symptoms. After her third visit for recurrent symptoms she was given Cipro with good resolution of symptoms. Lin's other concern are increasingly heavy menstrual periods x 1-2 years. Hgb 12/2020 11.2mg/dl with MCV 78. She reports monthly periods that last 7 days with very heavy day #1-2 with clots; changing pad up to ever hour. Cramping is tolerable. Takes no meds for this. No change in vaginal discharge, no foul smell, no spotting. No dyspareunia. Patient has ESSURE. Medications and labs reviewed: Very mild iron deficiency anemia in December 2020. A1C is out of control at 9.7% in December. Last visit for DM 12/09. Of note, patient began taking Aspirin 1 year ago for CVD protection. No history of blood clot or other coagulopathy. Shaina Sam, LIANET [address] [place], [address], [facility] 03/09/2021 13:22:23 05/05/2021 text/html HPI Notes: Saida chacko is a American-speaking 36 year old woman who presents today via phone to review her recent pelvic U/S done for heavy menstrual bleeding. Today's visit scheduled in person but patient did not have access to transportation. TSH and CBC scheduled at [facility] have not yet been done. Jennifer Avila will following up on this to schedule at [facility]. Lin had a period 04/21 that was safety counselor after stopping ASA. This menses only lasted 4 days. Pelvic U/S done at [facility] 03/19 shows a 1.9cm polyp which is likely contributing to these heavy periods Diabetes is mook per patient. She has been taking her BGs: 110s in am, 160s-170s in afternoon. Dr. Newell cares for Lin's diabetes. No more UTIs. Shaina Sam NP [address] [place], [address], [facility] 05/05/2021 12:57:23 06/30/2021 text/html HPI Notes: Diabe kristin Reported by patient. Review finger sticks: fastin; post breakfast: 140; Does not take after largest meal Duration: chronic Control: worsened since last visit; hemoglobin A1C has been greater than 9 Compliance: compliant with medications; compliant with follow-up visits; no side effects from medications Associated Symptoms: no dizziness; no increased thirst; weight gain (50 lbs) Notes: 50# weight gain per Adry although patient does not believe she has gained so much. Lin is a American-speaking 36 year old woman who presents today to review her DM2. She wishes to establish DM2 care with me. She has formerly been followed by my colleague Dr. Newell. POCT A1C today is 10.7%. This is not consistent with her home BGs; however, she takes these typically fasting or after breakfast. Lin is scheduled to see oven roaster Dr. Ontiveros in our clinic tomorrow, 07/01/21, to review her endometrial polyp. TSH and CBC scheduled at [facility] have not yet been done. We can do these. Lin is experiencing weight gain and hair thinning so I am eager to see these labs. Tolerating Metformin well. Naproxen with menses is helping. However, patient continues to have intermenstrual bleeding. Things are home are more stressful than normal; her 16 year old daughter is . 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 Monday (4 days ago): noticed right nipple pain while putting on bra. Noticed a small amount of white discharge on her nipple and when she expressed her breast, a small (teaspoon-sized) amount of blood and pus came out. No foul smell. This has not happened since. Has never happened before. Continuing to have sharp, intermittent bilateral breast pain. Has not noticed any lumps, skin changes, rashes. 01/28/21 Bilateral mammogram done for breast pain was normal. Feels otherwise well. No fevers. Mirena LnG in place. Home BGs are 118 - 160mg/dl, 160 postprandial. Still just taking 2 Metformin; did not increase to 3 ass planned. Has missed appointments here and has not answered our CHW's phone calls trying to obtain status reports and provide support. Had MIrena placed this year. Having rare spotting. All kids now in school. Spending days caring for infant granddaughter. Daughter is finishing out HS. Shaina Sam NP [address] [place], [address], [facility] 01/26/2022 13:28:18 07/01/2022 text/html HPI Notes: DM f/ u. Last A12 from Jan 2022: we.4. Lipids done same time. Total chol 194; Due for A1C, urine microalbumin, BMP Meds: metformin Checking BG? not as her machine broke. no new symotoms MARY JO HELMS MD [address] [place], [address], [facility] 07/01/2022 12:10:03 07/24/2023 text/html HPI Notes: Saida chacko presents today for DM f/u This is her first visit with this provider Last visit was in October [address] Newell Checks BG at home in the AM: This morning it was 155. Usually varies between about 130-60 Denies episodes of hyper or hypo glycemia. Denies polydipsia, polyuria. Reports she tries to eat well, reduces bread, tortillas. increase veggies No regular exercise, occasionally walks Takes care of children in the home Current medications: - glyburide 5mg -metformin 500mg b.i.d. Says has tried higher doses in past and got some headaches Last A1C: 9.9 (04/2023) Renal function: WNL (Scr 0.4), 07/14 Lipids: total chol: 171, tri 199, HDL 34; LDL 97 ()01/2023) Urine microalbumin: high (320) 07/14 Eye exam: due Foot exam: had at end of 2022, pt reports no issues Preventative screening: - cervical ca :2018. Negative. Due 03/2024 - breast ca: last done 01/2022 (diagnostic 06/23 to nipple d/c, all normal). Due for screening mammo ALYCIA Armstrong [address] [place], [address], [facility] 07/24/2023 16:42:44 OBGyn Episode No OBEpisode recorded.
--- OUTSIDE RECORDS SUMMARY | 2023-10-06 14:48 | XMS_ITS | Continuity of Care Document ---
Author Name Unknown Address [address] [place] [address] Phone [phone] Organization [facility] OFF[facility] Address [address] [place] [address] Assessment No assessment recorded. Plan of Treatment Reminders Order Date Submit Date Provider Last Modified By Organization Details Last Modified Time Details Appointments None recorded. Lab HbA1c (hemoglobi n A1c), blood [email or web address] [place] [address] Office, [address] [place] [address], [phone], 4 16:27:31 microalbum in/creatin ine, mass ratio, urine 2023 024 [facility] Office, [address] [place] [address], [phone], 4 04:00:52 Referral None recorded. Procedures None recorded. Surgeries None recorded. Imaging MAMMO, screening, bilateral 2023 024 JARRED Not available 4 04:06:29 Medication Orders metformin 500 mg tablet 2023 024 [facility], [address] [place], [address], 4 14:40:10 Patient TargetsNo targets recorded. Patient InstructionsNo instructions recorded. Reason for Referral Community Care Referral for Type 2 diabetes mellitus without complication patient newly diagnosed and needs glucometer Referring Physician: Renard Newell, Internal Medicine, Encounter Date: 12/25/2019 Community Care Referral for Essential hypertension has a glucometer, needs BP cuff, needs optometry referral for visual problems Referring Physician: Renard Newell, Internal Medicine, Encounter Date: 02/12/2020 [employer]ed Circuit Board Preassembler Referral for Ab normal uterine bleeding due to endometrial polyp Please make an appointment for Lin to see Dr. Noriega at [facility] to discuss her ongoing heavy menstrual bleeding and 1.9cm polyp. The U/S was done at [facility] so the gyne should be able to [...] mellitus uncontrolled Referring Physician: Mary Jo Freedman [facility], Internal Medicine, Encounter Date: 07/01/2022 Fireman Helper Referral for Typ e II diabetes mellitus uncontrolled Referring Physician: Renard Newell, Internal Medicine, Encounter Date: 11/15/2022 Problems Name Status Onset Date Resolution Date Notes Provider Name and Address Organization Details Recorded Time Scattered fibroglandula r densities Active 2020 [facility]oc w/ breast pain. Mammo WNL 01/28/21. Recommend age-appropria te screening. Shaina Sam NP [address] [place], [address], [facility] [employer] 2 11:55:49 Diabetes mellitus Completed 202001/26/2022 Removal Reason: Uncontrolled now. Shaina Sam NP [address] [place], [address], [facility] [employer] [facility] 2 11:56:01 Anemia Active 2020 Shaina Sam NP [address] [facility] [place], [address], [facility] [employer] [facility] 2 11:55:01 Menorrhagia Completed 202001/26/2022 Resolved with Lng IUD Placement. Shaina Sam NP [address] [facility] [place], [address], [facility] [employer] [facility] 2 11:55:23 Obesity Active 2020 Shaina Sam NP [address] [facility] [place], [address], [facility] [employer] [facility] 2 11:55:39 Polyp of corpus uteri Active 2020 Shaina Sam NP [address] [place], [address], [facility] [employer] [facility] 1 12:55:34 Type II diabetes mellitus uncontrolled Active 2021 Shaina Sam NP [address] [facility] [place], [address], [employer] 2 11:55:06 Discharge from nipple Active 2021 Shaina Sam NP [address] [facility] [place], [address], [facility] [employer] [facility] 2 11:55:36 Type 2 diabetes mellitus Active 2022 Renard Newell MD [address] [facility] [place], [address], [facility] [employer] 3 15:31:10 Problem Notes None recorded. Procedures Surgical History Date Name Laterality Status Provider Name and Address Organization Details Recorded Time 04/08/2019 Date of Last Pap Smear completed Elaine Dumont, LIANET [address] [facility] [place], [address], [facility] [employer] 02/01/2021 14:02:03 Imaging Results None recorded. Procedure Notes None recorded. Medical Equipment None [...] Available Not Available Not Available Athlete's Foot (aaron schmid) 1 % topical cream APPLY TO THE [...] Available Not Available Vitals Date Recorded Body height Body mass index (BMI) Body weight Oxygen saturation Oxygen saturation in Arterial blood by Pulse oximetry Heart rate Systolic blood pressure Diastolic blood pressure Provider Name and Address Organization Details Last Updated DateTime 4 154.25 cm 47.5 kg/m2 424589. 58 g 97 % 97 % 76 /min 116 mm[Hg] 73 mm[Hg] ALYCIA Armstrong [address] [place], [address] [place] [address] [employer] 4 12:34:41 Social History Question Answer Notes LastModified by Organizat ion Details LastModified Time Tobacco Smoking Status Never Smoker Shaina Sam NP [address] [place], [address], [facility] [employer] 01/26/2022 11:59:00 What Is Your Level Of Alcohol Consumption? None [email or web address] Information not available 01/26/2022 Are You Currently Employed? [email or web address] [id number] Information not available 01/26/2022 Who Is Your Employer? [employer] . [email or web address] Information not available 01/26/2022 Sex: Female Functional [...] Encounter Closed Date Diagnosis/Indication Diagnosis SNOMED-CT Code [id number] ALYCIA Armstrong [place] [facility] [address] [place] [address] 07/24/2023 12:26:23 07/24/2023 13:02:15 Type 2 diabetes mellitus 73216309 Microalbum inuria due to type 2 diabetes mellitus 0529163231258 2 Screening for malignant neoplasm of breast [id number] Health Concerns Section Related Observation LastModified by Organization Detai ls LastModified Time None Recorded Concern Status LastModified by Organization Details LastModified Time None Recorded Payers Encounter Date Sequence Insurance Name Policy Number Policy Kennedy Covered Member ID Kennedy Member ID Guarantor Name 07/24/2023 [employer] - [place] [employer] Lin Howard Pozo [id number] Lin Howard Pozo Notes Date Note Type Note Provider Name and Address Organization Details Recorded Time 07/24/2023 text/html HPI Notes: Lin presents today for DM f/u This is [...] Due for screening mammo ALYCIA Armstrong [address] [place], [address], [facility] 07/24/2023 16:42:44 OBGyn Episode No OBEpisode recorded.
--- OUTSIDE RECORDS SUMMARY | 2023-10-06 14:48 | XMS_ITS | Clinical Summary ---
Author Name Unknown Organization [facility] Address [place], [place] [address] Care Team Providers Care Excellence Specialist Name Role Phone Hawa Matson MD Primary Care Provider [phone] Allergies No known active allergies Medications Medication Sig Dispensed Refills Start Date End Date Status vitamin-folic acid 1 mg ( RX) tablet/capsule Take 1 tablet by mouth once daily. 0 10/11/2013 Active lanolin (LANSINOH) ointment Apply topically to affected area(s) every hour if needed for Other (Specify) (For nipple discomfort). 1 Tube 0 10/21/2013 Active ferrous sulfate, 65 mg elemental, 325 mg (65 mg iron) tablet Take 1 tablet by mouth once daily with a meal. 100 tablet 2 10/21/2013 Active docusate (COLACE) 100 mg capsule Take 1 capsule by mouth 2 times daily if needed for Constipation. 100 capsule 10/21/2013 Active ibuprofen (ADVIL; MOTRIN) 600 mg tablet Take 1 tablet by mouth every 6 hours if needed for Pain. Maximum of 3200 mg in 24 hours. 30 tablet 10/21/2013 Active acetaminophen (TYLENOL) 325 mg tablet Take 1-2 tablets by mouth every 6 hours if needed for Pain. Max acetaminophen dose: 4000mg in 24 hrs. 100 tablet 10/21/2013 Active ascorbic acid (VITAMIN C) 250 mg tablet Take 1 tablet by mouth once daily. 100 tablet 2 10/21/2013 Active Breast Pump - Purchase For home use. Gestation age at delivery: 37 weeks. Reason for need: . Length of need: 2 months 1 Device 0 10/21/2013 Active Breast Pump-Rental For home use. Gestation age at delivery: 37 weeks. Reason for need: . Length of need: 2 months 1 Device 0 10/21/2013 Active Active Problems Problem Noted Date Diagnosed Date Obesity in , delivered 10/21/2013 Non-Yakut speaking patient 10/21/2013 Grand multiparity with current 014 Short interval between pregn ancies complicating , antepartum 10/20/2013 UTI (lower urinary tract infection) 10/20/2013 Anemia complicating 10/20/2013 Vaginal delivery 10/20/2013 Insufficient care 10/10/2013 Overview: None until 10/10/2013 History of gestational diabe kristin in prior , currently 10/10/2013 Oligohydramnios 11/17/2012 Resolved Problems Problem Noted Date Diagnosed Date Resolved Date Hx of hemorrhage, currently 10/20/2013 10/21/2013 Maternal morbid obesity, antepartum 11/18/2012 10/21/2013 GDM (gestational diabetes mellitus) 11/18/2012 10/10/2013 Immunizations Name Administration Dates Next Due Influenza A (H1N1), Inactivated (Age >=3 Years) 04/14/2009 Influenza, IIV3 (Age >=3 years) 04/14/2009 Family History Medical History Relation Name Comments Diabetes Father at age 25 Diabetes Mother Relation Name Status Comments Father Mother Social History Tobacco Use Types Packs/Day Years Used Date Smoking Tobacco: Never Smokeless Tobacco: Never Alcohol Use Standard Drinks/Week Comments No 0 (1 standard drink = 0.6 oz pur e alcohol) Sex and Gender Information Value Date Recorded Sex Assigned at Not on file Gender Identity Not on file Sexual Orientation Not on file Obstetrics History Para Term AB IAB SAB Ectopic Multiple Livin g Live Births 7 6 5 1 1 1 6 6 Date Outcome GA Total Labor Labor/2nd/3rd Weight Sex Delivery Anes PTL Jolynn A1 A5 Name Cl in Term Santa ng Term Santa ng Term Santa ng Term Santa ng SAB SPONTANE O US 11/18 36w 4d 3.9 kg (8 lb 9.7 oz) F Vag Santa ng 8 9 BG MICHELLE Delivery Location:[facility] 10/20 Term 37w 0d 3.09 kg (6 lb 13 oz) F Vag Santa ng 8 9 BG MICHELLE Delivery Location:[facility] Last Filed Vital Signs Vital Sign Reading Time Taken Comments Blood Pressure 105/55 10/22/2013 9:00 AM CDT Pulse 78 10/22/2013 9:00 AM CDT Temperature 36.5 ??C (97.7 ??F) 10/22/2013 9:00 AM CD T Respiratory Rate 16 10/22/2013 9:00 AM CDT Oxygen Saturation 96% 10/21/2013 4:57 PM CDT Inhaled Oxygen Concentration - - Weight 107 kg (236 lb) 10/20/2013 8:39 AM CDT Height 162.6 cm (5' 4) 10/20/2013 8:39 AM CDT Body Mass Index 40.51 10/20/2013 8:39 AM CDT Plan of Treatment Health Maintenance Due Date Last Done Comments Tdap 1994 Depression screening for age 12+ 1995 HIV for age 15-65 1998 BMI (ht and wt on same day) for age 18+ 2001 Hepatitis C screening for age 18-79 2001 Tetanus booster 2003 Pap test for age 21-65 04/08/2022 9, 03/26/2019, 03/26/2019, Additional history exists COVID-19 vaccine series (2022- season) 2023 Influenza for age 9-49 01/21/2024 04/14/2009, 2008 Pneumococcal series for age 6-64 Aged Out No longer eligible based on patient's age to complete this topic Procedures Procedure Name Priority Date/Time Associated Diagnosis Comments REVENUE LIAISON THIN PREP PAP SCREEN IMAGED Routine 04/08/2019 10:00 AM LEAD MEDICAL TECHNOLOGIST from Last 3 Months or Most Recently Relevant to Health Maintenance Results * REVENUE LIAISON THIN PREP PAP SCREEN IMAGED (04/08/2019 10:00 AM LEAD MEDICAL TECHNOLOGIST) Case Report Gynecologic Cytology Report ? Case: [id number] ? Authorizing Provider: ??Unknown, Doctor ?Collected: ? 04/08/2019 1000 ? Ordering Location: ? [facility] ?Received: ?04/10/2019 1348 ? First Screen: ?Zachery Love ? Specimen: ?REVENUE LIAISON ThinPrep Vial Screening, Cervical/Vaginal ? 04/19/2019 3:37 PM [facility] INTERPRETATION/ RESULT NEGATIVE FOR INTRAEPITHELIAL LESION OR MALIGNANCY (NIL) (none) 04/19/2019 3:37 PM [facility] NISM(S) Shift in claribel suggestive of bacterial vaginosis 04/19/2019 3:37 PM LEAD MEDICAL TECHNOLOGIST [facility] SPECIMEN ADEQUACY Satisfactory for evaluation Endocervical component present 04/19/2019 3:37 PM [facility] HPV REQUEST HPV if ASCUS 04/19/2019 3:37 PM [facility] Date of LMP 04/05/2019 04/19/2019 3:37 PM [facility] Menstrual Status 04/19/2019 3:37 PM [facility] Comment:heavy bleeding Automated Review Successful 04/19/2019 3:37 PM [facility] Comment:Specimen processed s uccessfully by automated prop drawer device, ThinPrep Imaging System, [employer] Note The pap test is a screening technique, not a diagnostic procedure. ??It is used primarily to screen for squamous cancers and precursor lesions. ??Published studies have shown that it is subject to both false negative and false positive results. ??The pap test should not be used as the sole means to diagnose or exclude pre-malignant and malignant lesions. Cytology is screened and interpreted at [facility] - [address], [place] [address] and [facility] - [address]; [place] [address] and [facility] - [address]; [place] [address] and [facility] [address]; [place] [address] 04/19/2019 3:37 PM LEAD MEDICAL TECHNOLOGIST [facility] Other (Cervical/Vagina l) 04/08/2019 10:00 AM LEAD MEDICAL TECHNOLOGIST 04/10/2019 1:48 PM LEAD MEDICAL TECHNOLOGIST Doctor Unknown PATHOLOGY/CYTOLOGY [facility] [address] [place] [address], from Last 3 Months or Most Recently Relevant to Health Maintenance Advance Directives * Full Code (Latest Code Status on File) Date Activated Date Inactivated Comments 10/20/2013 8:57 AM 10/20/2013 8:04 PM * Full Code Date Activated Date Inactivated Comments 10/10/2013 4:12 PM 10/11/2013 5:08 PM * Full Code Date Activated Date Inactivated Comments 11/17/2012 1:48 PM 11/18/2012 4:27 AM Care Teams Excellence Specialist Relationship Specialty Start Date End Date Hawa Matson MD PCP - General Unknown Physician Specialty 10/10/13
== END 2023-10-06 14:45 | disposition home or self-care (01) ==
LOC: MAMMO 14:44
PROVIDERS: PCP Family Medicine; Visit Provider Nurse Practitioner Family
DX: Z12.31 Encounter for screening mammogram for malignant neoplasm of breast (principal)
CPT/HCPCS: 77063; 77067; T1013

== ENCOUNTER 2023-11-18 00:41 | Emergency (ER) | payer OTHER, SELFPAY ==
[2023-11-18 00:51] VITALS: BP 110/74; PULSE 85; RESP 20; TEMP 36.7; O2SAT 99; BMI 60.1
[2023-11-18 01:20] VITALS: TEMP 36.7
[2023-11-18] MEDS: FLUORESCEIN SODIUM TOPICAL STRIP 1 STRIP EYE-RIGHT (01:20)
[2023-11-18] MEDS: IBUPROFEN 200 MG TABLET 600 MG PO (01:20)
[2023-11-18] MEDS: TETANUS/DIPHTH/PERTUSSIS 0.5 ML SYRINGE IM (01:21)
[2023-11-18] MEDS: TETRACAINE 0.5% OPHTH 2 DROP EYE-RIGHT (01:21)
--- NOTE | 2023-11-18 01:21 | ED_ITS ---
HPI - Eye Problem General Date Seen: 11/18/23 Chief complaint: Eye Problems Stated complaint: right eye pain Time Seen by Provider: 11/18/23 00:50 Source: patient and family Mode of arrival: ambulatory Limitations: no limitations and language barrier History of Present Illness HPI Narrative: Patient is a 38-year-old female presents here with right eye pain, this occurred probably half an hour ago after she opened up a drawer and something went into her right eye from the drawer. She thinks it was a little sienna at [employer] something. Her right eye has been irritated since then. And a little bit blurry. She does not wear contacts or glasses. She did not wash her eye MD chief complaint: eye pain, eye redness and foreign body Onset (ago): minute(s) Onset description: sudden Duration: constant Location: right eye Eye Symptoms: burning, redness and foreign body sensation Place: home Severity: moderate If Pain, Quality: burning Associated symptoms: none Treatments Prior to Arrival: none Related Data Patient tetanus UTD: No Home Medications ?Medication ?Instructions ?Recorded ?Confirmed metformin 500 mg tablet 1,000 mg PO BID 11/18/23 11/18/23 Allergies Allergy/AdvReac Type Severity Reaction Status Date / Time No Known Allergies Allergy Unknown Verified 11/18/23 00:54 Review of Systems Status of ROS: Reports: 10 or more systems reviewed and unremarkable except as noted in History and below [facility] Medical History History of type 2 diabetes mellitus ?Z86.39 - Personal history of other endocrine, nutritional and metabolic disease (ICD-10) Gestational diabetes mellitus (11/04/11) ?O24.419 - Gestational diabetes mellitus in , unspecified control (ICD-10) Delivery normal (11/04/11) ?O80 - Encounter for full-term uncomplicated delivery (ICD-10) Surgical History History of tubal ligation (2013) ?Z98.51 - Tubal ligation status (ICD-10) Family History Mother Heart disease Uterine cancer Father Type 2 diabetes mellitus Family/Other Type 2 diabetes mellitus Social History Narrative: single, homemaker, 6 kids, non-smoker, no EtOH Smoking Status: Never smoker Second hand tobacco smoke exposure: No How often do you have a drink containing alcohol: never AUDIT-C Alcohol total score: 0 Non-prescribed substance use: denies use Exam Narrative: Exam Narrative: On examination she is seen in room 4, ice house supervisor is used for the examination in the history. Her right eye is reddened. Anterior chamber is otherwise quiet. Her pupils are equal round reactive to light, there is no lid swelling notable. Extraocular muscles are normal, Alcaine is used in the right eye, 2 drops this resulted and her foreign body sensation going away. I then used fluorescein, there appears to be a scratches to approximately the 7:00 a.m. area. There appears to be no evidence of foreign body. Her upper lid is everted and normal, lower lid is checked and normal, Visual acuity is 20 70 right eye, and 20 50 left we updated her tetanus, and gave her a dose ibuprofen. Slit-lamp examination was done Const: Vital Signs, click to edit/add: Vital Signs - 24 hr 11/18/23 00:51 Temperature 98.0 F Pulse Rate [Right Pulse Oximeter] 85 Respiratory Rate 20 Blood Pressure [Le ft Upper Arm] 110/74 Pulse Oximetry 99 Oxygen Delivery Me thod Room Air Course Course ED Course: I discussed with her the diagnosis, I think if she is a lot better L tomorrow then we do not do anything if she worsens I have asked her to come back to the ER or be seen [facility] Monday. Ibuprofen should be used along with the eyedrops he given her out of instymeds, which are tobramycin Vital Signs Vital signs: Initial Vital Signs Temperature 98.0 F 11/18/23 00:51 Temperature Source Temporal Artery Scan 11/18/23 00:51 Pulse Rate 85 11/18/23 00:51 Respiratory Rate 20 11/18/23 00:51 Blood Pressure 110/74 11/18/23 00:51 Blood Pressure Mean 86 11/18/23 00:51 Blood Pressure Position Sitting 11/18/23 00:51 Pulse Oximetry 99 11/18/23 00:51 Oxygen Delivery Method Room Air 11/18/23 00:51 Vital Signs Temperature 98.0 F 11/18/23 00:51 Pulse Rate 85 11/18/23 00:51 Respiratory Rate 20 11/18/23 00:51 Blood Pressure 110/74 11/18/23 00:51 Pulse Oximetry 99 11/18/23 00:51 Oxygen Delivery Method Room Air 11/18/23 00:51 Temperature 98.0 F 11/18/23 00:51 Pulse Rate 85 11/18/23 00:51 Respiratory Rate 20 11/18/23 00:51 Blood Pressure 110/74 11/18/23 00:51 Pulse Oximetry 99 11/18/23 00:51 Oxygen Delivery Method Room Air 11/18/23 00:51 MDM - Eye Problem Differential Diagnosis Differential diagnosis: Likely corneal abrasion, conjunctivitis, acute iritis, hyphema, periorbital cellulitis, subconjunctival hemorrhage, glaucoma, corneal ulcer and ruptured globe Medical Records Attestation: I reviewed the patient's medical records. Medical records narrative: She had a similar presentation a year ago. Discharge Plan Discharge Clinical Impression: Corneal abrasion Patient Disposition: Home w/ Parent or Adult Condition: Stable Instructions: Corneal Abrasion (ED), Photophobia (ED) Additional Instructions: Home rest use of eyedrops, ibuprofen 600 mg 3 times a day, use sunglasses about side it should be significantly better by later tomorrow. If it isn't then I thought suggest he get seen at the [facility] on Monday. Activity Level: Light activity Prescriptions: No Action metformin 500 mg tablet 1,000 mg PO BID Rx Instructions: take 2 tablets in the morning, then take 1 tablet at dinner time Follow Up/Referrals: So Tse MD [Primary Care Provider] - Stand Alone Forms: [employer] Info Instructions
[2023-11-18 01:22] VITALS: BP 112/71; PULSE 82; RESP 20; TEMP 36.7; O2SAT 99
--- OUTSIDE RECORDS SUMMARY | 2023-11-18 01:25 | XMS_ITS | Data Portability ---
Author Organization [facility] - Jaime navarrete [facility] Address [address] [place] [id number] Assessment No assessment recorded. Plan of Treatment Reminders Order Date Submit Date Provider Last Modified By Organization Details Last Modified Time Details Appointments NEMO HAAS T 30 2023 01:30P ALYCIA Norton Not available Not available Not available Lab microa lbumin /creat inine, mass ratio, urine 2021 022 sal[facility], [address] [place] [address], [address], 08/09/2021 23:56:54 prolac tin, serum 2021 022 [facility], [address] [place] [address], [address], 02/16/2022 09:08:27 glycoh emoglo bin, total, blood 2021 022 [facility], [address] [place] [address], [address], 02/13/2022 21:11:57 lipid panel, serum 2021 022 [facility], [address] [place] [address], [address], 02/13/2022 21:11:57 CBC 2021 022 [facility], [address] [place] [address], [address], 02/13/2022 21:11:57 lipid panel, serum 2022 023 [facility], [address] [place] [address] [place], [address], 07/07/2022 16:32:50 HbA1c (hemog lobin A1c), blood 2022 023 [facility], [address] [place], [place] [address], [place], [address], 07/07/2022 16:32:50 microa lbumin /creat inine, mass ratio, urine 2022 023 [facility], [address] [place], [place] [address], [place], [address], 07/07/2022 16:32:50 CMP, serum or plasma 2022 023 [facility], [address] [place], [place] [address], [place], [address], 07/07/2022 16:30:34 CBC 2022 023 [facility], [address] [place], [place] [address], [place], [address], 01/27/2023 13:05:56 hemogl obin A1C/he moglob in total, QN, blood 2022 023 [facility], [address] [place], [place] [address], [place], [address], 01/27/2023 14:17:15 glycoh emoglo bin, total, blood 2022 023 [facility], [address] [place], [place] [address], [place], [address], 01/27/2023 13:05:56 lipid panel, serum 2022 023 [facility], [address] [facility] [place], [address], 01/27/2023 12:32:13 CBC 2022 023 [facility], [address] [facility] [place], [address], 01/27/2023 12:32:14 HbA1c (hemog lobin A1c), blood 2023 024 [facility], [facility] [place], [address], 10/06/2023 18:23:27 microa lbumin /creat inine, mass ratio, urine 2023 024 [email or web address], [facility] [place], [address], 10/13/2023 13:33:29 Referral [facility] health worker referr al - Could I please have an update on Jose Alfredo walker's BGs in 2 weeks so we can see how she is respon ding to her medica tion increa se? No need for other calls/ check- ins at this time unless CHW believ es otherw ise. 2021 022 [email or web address] Not available 06/30/2021 15:04:58 [facility] health worker referr al 2022 023 [email or web address] Not available 07/04/2022 21:08:07 optome trist referr al 2022 023 [email or web address] Not available 11/16/2022 11:20:58 Procedures None record ed. Surgeries None record ed. Imaging US, breast , unilat eral - Single episod e of pus and bloody nipple draina ge. No pain. Normal clinic al exam. 2021 022 JARRED Not available 02/11/2022 14:37:58 MAMMO, diagno stic, digita l, unilat eral - Single episod e of pus and bloody nipple draina ge. No pain. Normal clinic al exam. 2021 022 JARRED Not available 02/11/2022 14:38:23 MAMMO, screen ing, bilate ral 2023 024 JARRED Not available 10/10/2023 10:41:21 Medication Orders ferrou s sulfat e 325 mg (65 mg iron) tablet [facility] [address] [place] [address], [address], 07/24/2023 12:41:12 metfor min ER 500 mg tablet ,exten ded releas e 24 hr 2021 022 [email or web address] [address], [address], 02/07/2023 16:55:08 clotri mazole 1 % topica l cream [address], [address], 07/24/2023 12:41:20 metfor min ER 500 mg tablet ,exten ded releas e 24 hr 2022 [email or web address] [facility], [address] [place] [address], [address], 02/07/2023 16:55:08 glybur tra 5 mg tablet 2022 023 [email or web address] [address], [address], 02/07/2023 16:55:17 metfor min 500 mg tablet [address], [address], 11/15/2022 18:10:48 metfor min 500 mg tablet 20[address], [address], 07/24/2023 14:40:10 Patient TargetsNo targets recorded. Patient Instructions Encounter Date Encounter Id Patient Instructions Last Modified By Organization Details Last Modified Time 06/30/2021 [id number] Ca??Da del cabel lo por alopecia areata: instrucciones de cuidado - [hair loss from alopecia areata: care instructions] [email or web address] Not available 06/30/2021 14:06:53 anemia: instrucciones de cuidado - [anemia: care instructions] [email or web address] Not available 06/30/2021 14:06:23 01/26/2022 [id number] secreci??n del pez??n: instrucciones de cuidado - [nipple discharge: care instructions] [email or web address] Not available 01/26/2022 11:44:23 anemia: instrucciones de cuidado - [anemia: care instructions] [email or web address] Not available 01/26/2022 11:44:24 07/01/2022 [id number] Home Blood Sugar Test: About This Test [email or web address] Not available 07/01/2022 12:09:51 11/15/2022 [id number] watch for low glucose with sweating or weakness, have juice on hand [email or web address] Not available 11/16/2022 12:30:43 Reason for Referral [facility] Referral for Type 2 diabetes mellitus without complication patient newly diagnosed and needs glucometer Referring Physician: Renard Newell, Internal Medicine, Encounter Date: 12/25/2019 [facility] Referral for Essential hypertension has a glucometer, needs BP cuff, needs optometry referral for visual problems Referring Physician: Renard Newell, Internal Medicine, Encounter Date: 02/12/2020 Veterinary Assistant Technician Referral for Ab normal uterine bleeding due to endometrial polyp Please make an appointment for Lin to see Dr. Noriega at [facility] to discuss her ongoing heavy menstrual bleeding and 1.9cm polyp. The U/S was done at [facility] so the gyne should be able to [...] diabetes mellitus uncontrolled Referring Physician: Mary Jo Feliz, Internal Medicine, Encounter Date: 07/01/2022 [employer] Referral for Typ e II diabetes mellitus uncontrolled Referring Physician: Renard Newell, Internal Medicine, Encounter Date: 11/15/2022 Results Created Date Observation Date Name Description Value Unit Range Abnormal Flag LastModifiedBy Organization Detail LastModifiedTime 06/30/19 22 06/30/2021 HbA1c (hemo globi n A1c), blood HbA1c 10.[address] [facility] [address] [place] [address], [address], 06/30/2021 12:49:46 06/30/19 22 06/30/2021 CBC w/ [...] 02/11/2022 CBC total cholesterol 194 Not Available [facility] [place] [facility] [place], [address], 02/13/2022 21:11:57 02/12/20 22 02/11/2022 CBC triglyceride s 158 high Not Available [facility] [address] [place] [address] [place], [address], 02/13/2022 21:11:57 02/12/20 22 02/11/2022 CBC HDL 42 low Not Available [facility] [address] [place] [address] [place], [address], 02/13/2022 21:11:57 02/12/20 22 02/11/2022 CBC LDL 120 high Not Available [facility] [address] [place] [address] [place], [address], 02/13/2022 21:11:57 02/12/20 22 02/11/2022 CBC hemoglobin A1C 10.41 high Not Available [facility] [address] [place] [address] [place], [address], 02/13/2022 21:11:57 02/12/20 22 02/11/2022 CBC white blood count 6.51 Not Available [facility] [address] [place] [address] [place], [address], 02/13/2022 21:11:57 02/12/20 22 02/11/2022 CBC hemoglobin 224 Not Availa ble [facility] [address] [place] [address] [place], [address], 02/13/2022 21:11:57 02/12/20 22 02/11/2022 CBC platelet count 12.9 Not Available [facility] [address] [place] [address] [place], [address], 02/13/2022 21:11:57 02/12/20 22 02/11/2022 glyco hemog lobin , total , blood total cholesterol 194 Not Available [facility] [address] [place] [address] [place], [address], 02/13/2022 21:11:57 02/12/20 22 02/11/2022 glyco hemog lobin , total , blood triglyceride s 158 high Not Available [facility] [address] [place] [address] [place], [address], 02/13/2022 21:11:57 02/12/20 22 02/11/2022 glyco hemog lobin , total , blood HDL 42 low Not Available [facility] [address] [place] [address] [place], [address], 02/13/2022 21:11:57 02/12/20 22 02/11/2022 glyco hemog lobin , total , blood LDL 120 high Not Available [facility] [address] [place] [address] [place], [address], 02/13/2022 21:11:57 02/12/20 22 02/11/2022 glyco hemog lobin , total , blood hemoglobin A1C 10.41 high Not Available [facility] [address] [place] [address] [place], [address], 02/13/2022 21:11:57 02/12/20 22 02/11/2022 glyco hemog lobin , total , blood white blood count 6.51 Not Available [facility] [address] [place] [address] [place], [address], 02/13/2022 21:11:57 02/12/20 22 02/11/2022 glyco hemog lobin , total , blood hemoglobin 224 Not Available [facility] [place], [address], 02/13/2022 21:11:57 02/12/20 22 02/11/2022 glyco hemog lobin , total , blood platelet count 12.9 Not Available [facility] [address] [place] [address] [place], [address], 02/13/2022 21:11:57 02/12/20 22 02/11/2022 lipid panel , serum total cholesterol 194 Not Available [facility] [address] [place] [address] [place], [address], 02/11/2022 14:18:40 02/12/20 22 02/11/2022 lipid panel , serum triglyceride s 158 high Not Available [facility] [address] [place] [address] [place], [address], 02/11/2022 14:18:40 02/12/20 22 02/11/2022 lipid panel , serum HDL 42 low Not Available [facility] [address] [place] [address] [place], [address], 02/11/2022 14:18:40 02/12/20 22 02/11/2022 lipid panel , serum LDL 120 high Not Available [facility] [address] [place] [address] [place], [address], 02/11/2022 14:18:40 02/12/20 22 02/11/2022 lipid panel , serum hemoglobin A1C 10.41 high Not Available [facility] [address] [place] [address] [place], [address], 02/11/2022 14:18:40 02/12/20 22 02/11/2022 lipid panel , serum white blood count 6.51 Not Available [facility] [address] [place] [address] [place], [address], 02/11/2022 14:18:40 02/12/20 22 02/11/2022 lipid panel , serum hemoglobin 224 Not Available [facility] [address] [place] [address] [place], [address], 02/11/2022 14:18:40 02/12/20 22 02/11/2022 lipid panel , serum platelet count 12.9 Not Available [facility] [address] [place] [address] [place], [address], 02/11/2022 14:18:40 07/07/19 23 07/07/2022 micro album in/cr eatin ine, mass ratio , urine creatine 0.[address] [facility] [address] [place] [address] [place], [address], 07/07/2022 16:32:50 07/07/19 23 07/07/2022 micro album in/cr eatin ine, mass ratio , urine ALT [address] [facility] [address] [place] [address] [place], [address], 07/07/2022 16:32:50 07/07/19 23 07/07/2022 micro album in/cr eatin ine, mass ratio , urine total cholesterol 200 high Not Available [facility] [address] [place] [address] [place], [address], 07/07/2022 16:32:50 07/07/19 23 07/07/2022 micro album in/cr eatin ine, mass ratio , urine triglyceride s 176 high Not Available [facility] [address] [place] [address] [place], [address], 07/07/2022 16:32:50 07/07/19 23 07/07/2022 micro album in/cr eatin ine, mass ratio , urine HDL 38 low Not Available [facility] [place], [address], 07/07/2022 16:32:50 07/07/19 23 07/07/2022 micro album in/cr eatin ine, mass ratio , urine LDL 127 high Not Available [facility] [address] [place] [address] [place], [address], 07/07/2022 16:32:50 07/07/19 23 07/07/2022 micro album in/cr eatin ine, mass ratio , urine A1C hemoglobin 8.79 high Not Available [facility] [address] [place] [address] [place], [address], 07/07/2022 16:32:50 07/07/19 23 07/07/2022 micro album in/cr eatin ine, mass ratio , urine microalbumin ratio 320 high Not Available [facility] [address] [place] [address] [place], [address], 07/07/2022 16:32:50 07/07/19 23 07/07/2022 HbA1c (hemo globi n A1c), blood creatine 0.[address] [facility] [address] [place] [address] [place], [address], 07/07/2022 16:32:50 07/07/19 23 07/07/2022 HbA1c (hemo globi n A1c), blood ALT [address] [facility] [address] [place] [address] [place], [address], 07/07/2022 16:32:50 07/07/19 23 07/07/2022 HbA1c (hemo globi n A1c), blood total cholesterol 200 high Not Available [facility] [address] [place] [address] [place], [address], 07/07/2022 16:32:50 07/07/19 23 07/07/2022 HbA1c (hemo globi n A1c), blood triglyceride s 176 high Not Available [facility] [place], [address], 07/07/2022 16:32:50 07/07/19 23 07/07/2022 HbA1c (hemo globi n A1c), blood HDL 38 low Not Available [facility] [place], [address], 07/07/2022 16:32:50 07/07/19 23 07/07/2022 HbA1c (hemo globi n A1c), blood LDL 127 high Not Available [facility] [place], [address], 07/07/2022 16:32:50 07/07/19 23 07/07/2022 HbA1c (hemo globi n A1c), blood A1C hemoglobin 8.79 high Not Available [facility] [place], [address], 07/07/2022 16:32:50 07/07/19 23 07/07/2022 HbA1c (hemo globi n A1c), blood microalbumin ratio 320 high Not Available [facility] [address] [place] [address] [place], [address], 07/07/2022 16:32:50 07/07/19 23 07/07/2022 lipid panel , serum creatine 0.[address] [facility] [place], [address], 07/07/2022 16:32:49 07/07/19 23 07/07/2022 lipid panel , serum ALT [address] Not Available [facility] [place], [address], 07/07/2022 16:32:49 07/07/19 23 07/07/2022 lipid panel , serum total cholesterol 200 high Not Available [facility] [address] [place] [address] [place], [address], 07/07/2022 16:32:49 07/07/19 23 07/07/2022 lipid panel , serum triglyceride s 176 high Not Available [facility] [address] [place] [address] [place], [address], 07/07/2022 16:32:49 07/07/19 23 07/07/2022 lipid panel , serum HDL 38 low Not Available [facility] [address] [place] [address] [place], [address], 07/07/2022 16:32:49 07/07/19 23 07/07/2022 lipid panel , serum LDL 127 high Not Available [facility] [address] [place] [address] [place], [address], 07/07/2022 16:32:49 07/07/19 23 07/07/2022 lipid panel , serum A1C hemoglobin 8.79 high Not Available [facility] [address] [place] [address] [place], [address], 07/07/2022 16:32:49 07/07/19 23 07/07/2022 lipid panel , serum microalbumin ratio 320 high Not Available [facility] [address] [place] [address] [place], [address], 07/07/2022 16:32:49 07/07/19 23 07/07/2022 CMP, serum or plasm a creatine 0.[address] [facility] [address] [place] [address] [place], [address], 07/07/2022 10:48:17 07/07/19 23 07/07/2022 CMP, serum or plasm a ALT [address] Available [facility] [address] [place] [address] [place], [address], 07/07/2022 10:48:17 07/07/19 23 07/07/2022 CMP, serum or plasm a total cholesterol 200 high Not Available [facility] [place], [address], 07/07/2022 10:48:17 07/07/19 23 07/07/2022 CMP, serum or plasm a triglyceride s 176 high Not Available [facility] [address] [place] [address] [place], [address], 07/07/2022 10:48:17 07/07/19 23 07/07/2022 CMP, serum or plasm a HDL 38 low Not Available [address] [place], [address], 07/07/2022 10:48:17 07/07/19 23 07/07/2022 CMP, serum or plasm a LDL 127 high Not Available [address] [place], [address], 07/07/2022 10:48:17 07/07/19 23 07/07/2022 CMP, serum or plasm a A1C hemoglobin 8.79 high Not Available [address] [place], [address], 07/07/2022 10:48:17 07/07/19 23 07/07/2022 CMP, serum or plasm a microalbumin ratio 320 high Not Available [place] [address] [facility] [place], [address], 07/07/2022 10:48:17 01/28/20 23 01/27/2023 CBC total cholesterol 171 Not Available [facility] [address] [facility] [place] [address], 01/27/2023 12:32:14 01/28/20 23 01/27/2023 CBC triglyceride s 199 high Not Available [facility] [address] [facility] [place], [address], 01/27/2023 12:32:14 01/28/20 23 01/27/2023 CBC HDL 34 low Not Available [facility] [address] [place], [address], 01/27/2023 12:32:14 01/28/20 23 01/27/2023 CBC LDL 97 Not Available [facility] [address] [place], [address], 01/27/2023 12:32:14 01/28/20 23 01/27/2023 lipid panel , serum total cholesterol 171 Not Available [facility] [address] [place], [address], 01/27/2023 11:14:31 01/28/20 23 01/27/2023 lipid panel , serum triglyceride s 199 high Not Available [facility] [address] [place], [address], 01/27/2023 11:14:31 01/28/20 23 01/27/2023 lipid panel , serum HDL 34 low Not Available [facility] [address] [place], [address], 01/27/2023 11:14:31 01/28/2001/27/2023 lipid panel , serum LDL 97 Not Available [facility] [address] [place], [address], 01/27/2023 11:14:31 01/28/2001/27/2023 glyco hemog lobin , total , blood WBC 6.35 Not Available [facility] [address] [place], [address], 01/27/2023 13:05:56 01/28/2001/27/2023 glyco hemog lobin , total , blood HGB 12.2 Not Available [facility] [address] [place], [address], 01/27/2023 13:05:56 01/28/20 23 01/27/2023 glyco hemog lobin , total , blood plt 252 Not Available [facility] [address] [place], [address], 01/27/2023 13:05:56 01/28/20 23 01/27/2023 CBC WBC 6.35 Not Available [facility] [address] [place], [address], 01/27/2023 11:49:25 01/28/20 23 01/27/2023 CBC HGB 12.2 Not Available [facility] [address] [place], [address], 01/27/2023 11:49:25 01/28/20 23 01/27/2023 CBC plt 252 Not Available [facility] [address] [place], [address], 01/27/2023 11:49:25 01/28/20 23 01/27/2023 hemog lobin A1C/h emogl obin total , QN, blood A1C 8.14 high Not Available [facility] [address] [place], [address], 01/27/2023 14:11:01 05/17/20 23 05/17/2023 glyco hemog lobin , total , blood A1C 9.9 high Not Available [facility] [address] [place], [address], 05/17/2023 11:15:23 10/06/19 24 10/06/2023 HbA1c (hemo globi n A1c), blood A1C 9.8 high Not Available [facility] [address] [place], [address], 10/06/2023 18:10:21 02/12/20 22 02/11/2022 , ann villegas No observ ation record ed. [email or web address] [place] [address] Radiology Department [address] [place], [address], 02/14/2022 17:04:37 02/12/20 22 02/11/2022 MAMMO , diagn ostic , digit al, unila teral No observ ation record ed. [email or web address] [facility] Radiology Department [address] [place], [address], 02/14/2022 17:04:38 10/10/19 24 10/06/2023 MAMMO , scree piter, bilat eral No observ ation record ed. [email or web address] [facility] Radiology [address] [place], [address], 10/13/2023 11:49:29 Result Notes None recorded. Problems Name Status Onset Date Resolution Date Notes Provider Name and Address Organization Details Recorded Time Scattered fibroglandula r densities Active 2020 Assoc w/ breast pain. Mammo WNL 01/28/21. Recommend age-appropria te screening. Shania Sam NP [address] [place], [address], [facility] [employer] 11:55:49 Diabetes mellitus Completed 202001/26/2022 Removal Reason: Uncontrolled now. Shaina Sam NP [address] [place], [address], [facility] [employer] 2 11:56:01 Anemia Active 2020 Shaina Sam NP [address] [place], [address], [facility] [employer] 11:55:01 Menorrhagia Completed 202001/26/2022 Resolved with Lng IUD Placement. Shaina Sam NP [address] [place], [address], [facility] [employer] 11:55:23 Obesity Active 2020 Shaina Sam NP [address] [place], [address], [facility] [employer] 2 11:55:39 Polyp of corpus uteri Active 2020 Shaina Sam NP [address] [place], [address], [facility] [employer] 12:55:34 Type II diabetes mellitus uncontrolled Active 2021 Shaina Sam NP [address] [place], [address], [facility] [employer] 11:55:06 Discharge from nipple Active 2021 Shaina Sam NP [address] [place], [address], [facility] [employer] 11:55:36 Type 2 diabetes mellitus Active 2022 Renard Newell MD [address] [place], [address], [facility] [employer] 15:31:10 Problem Notes None recorded. Procedures Surgical History Date Name Laterality Status Provider Name and Address Organization Details Recorded Time 04/08/2019 Date of Last Pap Smear completed Elaine Dumont, LIANET [address] [place], [address], [facility] [employer] 02/01/2021 14:02:03 Imaging Results Imaging Date Name Status LastModified by [facility] Details LastModified Time 02/11/2022 US, breast, unilateral completed [address] Radiology Department [address] [place], [address], 02/14/2022 17:04:37 02/11/2022 MAMMO, diagnostic, digital, unilateral completed [address] Radiology Department [address] [place], [address], 02/14/2022 17:04:38 10/06/2023 MAMMO, screening, bilateral completed [facility] Radiology [address] [place], [address], 10/13/2023 11:49:29 Procedure Notes None recorded. Medical Equipment None [...] Address Organization Details Last Updated DateTime 06/30/2021 440533.28 g 110 mm[Hg] 70 mm[Hg] Shaina Sam NP [address] [place], [address], [facility] [employer] 06/30/2021 12:28:44 Date Recorded Body temperature Heart rate Body weight Body mass index (BMI) Body height Systolic blood pressure Diastolic blood pressure Provider Name and Address Organization Details Last Updated DateTime 2 97.4 [degF] 91 /min 108286. 09 g 45.7 kg/m2 157.48 cm 111 mm[Hg] 69 mm[Hg] Shaina Sam NP [address] [place], [address], [facility] [employer] 2 11:38:51 Date Recorded Body height Body temperature Respiratory rate Heart rate Body mass index (BMI) Body weight Systolic blood pressure Diastolic blood pressure Provider Name and Address Organization Details Last Updated DateTime 3 157.48 cm 97.4 [degF] 18 /min 77 /min 44.4 kg/m2 472798. 95 g 94 mm[Hg] 65 mm[Hg] MARY JO HELMS MD [address] [place], [address], [facility] [employer] 3 12:07:00 Date Recorded Body height Body mass index (BMI) Body weight Heart rate Systolic blood pressure Diastolic blood pressure Provider Name and Address Organization Details Last Updated DateTime 3 157.48 cm 45 kg/m2 003843. 44 g 69 /min 116 mm[Hg] 70 mm[Hg] Lisa Lechuga [facility] [employer] 3 17:42:30 Date Recorded Body height Body mass index (BMI) Body weight Oxygen saturation Oxygen saturation in Arterial blood by Pulse oximetry Heart rate Systolic blood pressure Diastolic blood pressure Provider Name and Address Organization Details Last Updated DateTime 4 154.25 cm 47.5 kg/m2 584949. 58 g 97 % 97 % 76 /min 116 mm[Hg] 73 mm[Hg] ALYCIA Armstrong [address] [place], [address], [facility] [employer] 4 12:34:41 Social History Question Answer Notes LastModified by Organizat ion Details LastModified Time Tobacco Smoking Status Never Smoker Shaina Sam NP [address] [place], [address], [facility] [employer] 01/26/2022 11:59:00 What Is Your Level Of Alcohol Consumption? None [email or web address] Information not available 01/26/2022 Are You Currently Employed? Yes [email or web address] Information not available 01/26/2022 Who Is Your Employer? [employer] [email or web address] Information not available 01/26/2022 Sex: Unknown Functional Status None recorded. Mental Status None [...] Encounter Closed Date Diagnosis/Indication Diagnosis SNOMED-CT Code [id number] MD RADHA Heller OFF[facility] [address] [facility] [address] 12/25/2019 15:29:51 01/01/2020 14:53:25 Type 2 diabetes mellitus without complication [id number] MD RADHA Heller OFFICE [address] [place] [address] 01/13/2020 16:34:23 01/13/2020 18:21:38 Type 2 diabetes mellitus without complication [id number] Type 2 eunice betes mellitus 78891048 Diabetes mellitus 598673 09 [id number] Elaine Dumont NP [facility] [address] [place] [address] 02/10/2020 11:26:40 02/10/2020 14:15:04 [id number] Renard Newell MD [facility] [address] [place] [address] 02/12/2020 14:05:27 02/12/2020 15:51:37 Type 2 diabetes mellitus without complication 073347557 Essential hypertension 03589197 [id number] Renard Newell MD [facility] [address] [place] [address] 05/19/2020 17:26:06 05/19/2020 19:28:32 Type 2 diabetes mellitus without complication 891554765 [id number] Renard Newell MD [facility] [address] [place] [address] 06/16/2020 17:49:56 06/16/2020 19:55:06 Type 2 diabetes mellitus without complication 336304435 [id number] Renard Newell MD [facility] [address] [place] [address] 12/07/2020 15:00:18 12/07/2020 19:08:39 Pain in left knee 8696650000733 02 [id number] SHANTANU BANUELOS, [facility] OFF[facility] [address] [place] [address] 12/31/2020 10:22:34 12/31/2020 11:14:50 Mastodynia of bilateral breasts 7877770876639 9109 Pain of breast 86800007 [id number] Shaina Sam NP [facility] [address] [place] [address] 03/08/2021 12:06:32 03/08/2021 13:23:07 Menorrhagia 613018548 Diabetes mellitus 609095 09 Scattered fibroglandular densities 444926984 [id number] Shaina Sam NP [facility] [address] [place] [address] 05/05/2021 11:54:21 05/05/2021 18:01:48 Abnormal uterine bleeding due to endometrial polyp 1152994973981 9103 Type 2 eunice betes mellitus 52712436 Anemia 452458370 16630 Shaina Sam NP [facility] [address] [place] [address] 06/30/2021 11:59:45 10/11/2021 16:45:53 Menorrhagia 917689278 Tinea pedis 4930442 Diabetes mellitus 293617 09 Anemia 035458511 Obesity 290642281 Loss of hair 150510712 78970 Shaina Sam NP [facility] [address] [place] [address] 01/26/2022 11:26:21 01/26/2022 12:22:49 Discharge from nipple 79694823 Anemia 387540186 Type II di abetes mellitus uncontrolled 608184233 13295 MARY JO HELMS MD [facility] [address] [place] [address] 07/01/2022 11:42:01 07/01/2022 12:18:09 Type II diabetes mellitus uncontrolled 949935051 Diabetes mellitus 228140 09 Hyperglyce jenelle due to type 2 diabetes mellitus 5177666285197 09 [id number] Renard Newell MD [facility] [address] [place] [address] 11/15/2022 17:38:00 11/15/2022 18:11:25 Type II diabetes mellitus uncontrolled 095051061 Microalbuminuria 2214392 06 Anemia 009443716 46290 ALYCIA Armstrong [facility] [address] [place] [address] 07/24/2023 12:26:23 07/24/2023 13:02:15 Type 2 diabetes mellitus 36806820 Microalbum inuria due to type 2 diabetes mellitus 4039821394181 2 Screening for malignant neoplasm of breast 306133244 Health Concerns Section Related Observation LastModified by Organization Detai ls LastModified Time None Recorded Concern Status LastModified by Organization Details LastModified Time None Recorded Advance Directives Directive None Recorded Payers Encounter Date Sequence Insurance Name Policy Number Policy Kennedy Covered Member ID Kennedy Member ID Guarantor Name 06/30/2021 SLIDING FEE SCHEDULE - DISCOUNT Lin Pozo 01/26/2022 SLIDING FEE SCHEDULE - DISCOUNT Lin Pozo 07/01/2022 SLIDING FEE SCHEDULE - DISCOUNT Lin Pozo 11/15/2022 SLIDING FEE SCHEDULE - DISCOUNT Lin Pozo 07/24/2023 [employer]NE SCREENING PROGRAM - [place] [employer] Lin Pozo [id number] Lin Pozo Notes Date Note Type Note Provider Name and Address Organization Details Recorded Time 06/30/2021 text/html HPI Notes: Diabe kristin Reported [...] (50 lbs) Notes: 50# weight gain per [place] although patient does not believe she has gained so much. Lin is a Sri Lankan-speaking 36 year old woman who presents today to review her DM2. She wishes to establish DM2 care with me. She has formerly been followed by my colleague Dr. Newell. POCT A1C today is 10.7%. This is not consistent with her home BGs; however, she takes these typically fasting or after breakfast. Lin is scheduled to see independent consultant Dr. Ontiveros in our clinic tomorrow, 07/01/21, to review her endometrial polyp. TSH and CBC scheduled at [facility] have not yet been done. We can do these. Lin is experiencing weight gain and hair thinning so I am eager to see these labs. Tolerating Metformin well. Naproxen with menses is helping. However, patient continues to have intermenstrual bleeding. Things are home are more stressful than normal; her 16 year old daughter is . 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 Spending days caring for granddaughter. Daughter is finishing out HS. Shaina Sam NP [address] [place], [address], [facility] [employer] 01/26/2022 13:28:18 07/01/2022 text/html HPI Notes: DM f/ u. Last A12 from Jan 2022: we.4. Lipids done same time. Total chol 194; Due for A1C, urine microalbumin, BMP Meds: metformin Checking BG? not as her machine broke. no new symotoms MARY JO HELMS MD [address] [place], [address], [facility] [employer] 07/01/2022 12:10:03 07/24/2023 text/html HPI Notes: Saida [...] Due for screening mammo ALYCIA Armstrong [address] [place], [address], [facility] - [employer] [facility] 07/24/2023 16:42:44 OBGyn Episode No OBEpisode recorded.
--- OUTSIDE RECORDS SUMMARY | 2023-11-18 01:25 | XMS_ITS | Clinical Summary ---
Author Organization [facility] Address [place], [place] [address] Care Team Providers Care Conche Loader And Unloader Name Role Phone Hawa Matson MD Primary Care Provider [phone] Allergies No known active allergies Medications Medication [...] Diagnosed Date Obesity in , delivered 10/21/2013 Non-Chilean speaking patient 10/21/2013 Grand multiparity with current [...] Outcome GA Total Labor Labor/2nd/3rd Weight Sex Type Anes PTL Jolynn A1 A5 Name Clin Term Livin g Term Livin g Term Livin g Term Livin g SAB SPONTA NEOUS 2012 36w 4d 3.9 kg (8 lb 9.7 oz) F Vag Livin g 8 9 BG BOUCHRA Delivery Location:[facility] 2013 Term 37w 0d 3.09 kg (6 lb 13 oz) F Vag Livin g 8 9 BG BOUCHRA Delivery Location:[facility] Last Filed Vital Signs Vital Sign [...] Procedure Name Priority Date/Time Associated Diagnosis Comments MOLD STAMPER THIN PREP PAP SCREEN IMAGED Routine 04/08/2019 10:00 AM BELLOWS CHARGER ASSEMBLER from Last 3 Months or Most Recently Relevant to Health Maintenance Results * MOLD STAMPER THIN PREP PAP SCREEN IMAGED (04/08/2019 10:00 AM BELLOWS CHARGER ASSEMBLER) Case Report Gynecologic Cytology Report ? Case: [id number] ? Authorizing Provider: ??Unknown, Doctor ?Collected: ? 04/08/2019 1000 ? Ordering Location: ? [facility] ?Received: ?04/10/2019 1348 ? First Screen: ?Zachery Love ? Specimen: ?MOLD STAMPER ThinPrep Vial Screening, Cervical/Vaginal ? 04/19/2019 3:37 PM [facility] INTERPRETATION/ RESULT NEGATIVE FOR INTRAEPITHELIAL LESION OR MALIGNANCY (NIL) (none) 04/19/2019 3:37 PM [facility] NISM(S) Shift in claribel suggestive of bacterial vaginosis 04/19/2019 3:37 PM [facility] SPECIMEN ADEQUACY Satisfactory for evaluation Endocervical component present 04/19/2019 3:37 PM [facility] HPV REQUEST HPV if ASCUS 04/19/2019 3:37 PM [facility] Date of LMP 04/05/2019 04/19/2019 3:37 PM [facility] Menstrual Status 04/19/2019 3:37 PM [facility] Comment:heavy bleeding Automated Review Successful 04/19/2019 3:37 PM [facility] Comment:Specimen processed s uccessfully by automated control area operator device, ThinPrep Imaging System, [employer] Note The pap test is a [...] is screened and interpreted at [facility], Central Laboratory - [address], [place] [address] and [facility] - [address]; [place] [address] and [facility] - [address]; [place] [address] and [facility] [address]; [place] [address] 04/19/2019 3:37 PM BELLOWS CHARGER ASSEMBLER [facility] ENTRAL LABORATORY Other (Cervical/Vagina l) 04/08/2019 10:00 AM BELLOWS CHARGER ASSEMBLER 04/10/2019 1:48 PM BELLOWS CHARGER ASSEMBLER Doctor Unknown PATHOLOGY/CYTOLOGY [facility] [address] [place] [address], from Last 3 Months or Most Recently Relevant to Health Maintenance Advance Directives * Full Code (Latest Code Status on File) Date Activated Date Inactivated Comments 10/20/2013 8:57 AM 10/20/2013 8:04 PM * Full Code Date Activated Date Inactivated Comments 10/10/2013 4:12 PM 10/11/2013 5:08 PM * Full Code Date Activated Date Inactivated Comments 11/17/2012 1:48 PM 11/18/2012 4:27 AM Care Teams Conche Loader And Unloader Relationship Specialty Start Date End Date Hawa Matson MD PCP - General Unknown Physician Specialty 10/10/13
[2023-11-18 01:33] VITALS: BP 112/71; PULSE 82; RESP 20; TEMP 36.7
== END 2023-11-18 01:34 | disposition home or self-care (01) ==
LOC: ED 01:23
PROVIDERS: Emergency Provider Family Medicine; PCP Family Medicine
DX: S05.01XA Injury of conjunctiva and corneal abrasion without foreign body, right eye, initial encounter (principal)
CPT/HCPCS: 90471; 90715; 99283; A9270

== ENCOUNTER 2025-01-08 09:03 | Outpatient (REF) | payer OTHER, SELFPAY ==
--- NOTE | 2025-01-08 09:15 | CRLHL7_ITS ---
For Patients: As a result of the Cures Act, medical imaging exams and procedure reports are released immediately into your electronic medical record. You may view this report before your referring provider. If you have questions, please contact your health care provider. INDICATION: Abnormal findings blood chemistry. TECHNIQUE: Ultrasound abdomen limited. Sonographic images of the right upper quadrant were obtained using preston-scale and color Doppler images. COMPARISON: CT abdomen/pelvis dated 01/17/2021. FINDINGS: Liver: Increased echogenicity of the liver parenchyma.. Mild hepatomegaly, the liver measures 19.0 cm. Bile ducts: Intrahepatic bile ducts are not dilated. The common bile duct measures 0.5 cm. Gallbladder: Multiple small mobile gallstones and gallbladder sludge. No significant gallbladder wall thickening or pericholecystic fluid. Negative sonographic Arnold`s sign. Pancreas: Pancreas is poorly visualized secondary to acoustic shadowing from overlying/adjacent bowel gas. Right kidney: The right kidney measures 11.8 cm in length. No renal calculi or significant hydronephrosis is identified. IMPRESSION: 1. Extensive cholelithiasis, without sonographic evidence of acute cholecystitis. 2. Increased echogenicity of the liver parenchyma, compatible with diffuse hepatic steatosis. Hepatomegaly. Dictated by Dedra Rushing MD @ 01/09/2025 2:03:12 PM (Electronically Signed)
--- OUTSIDE RECORDS SUMMARY | 2025-01-09 00:13 | XMS_ITS | Clinical Summary ---
Author Organization [facility] Address [address] [place] [address] Care Team Providers Care Casting And Pasting Supervisor Name Role Phone Hawa Matson MD Primary Care Provider [phone] Allergies No known active allergies Medications vitamin-folic acid 1 mg ( RX) tablet/capsule Take 1 tablet by mouth once daily. 0 4 Active lanolin (LANSINOH) ointment Apply topically to affected area(s) every hour if needed for Other (Specify) (For nipple discomfort). 1 Tube 0 4 Active ferrous sulfate, 65 mg elemental, 325 mg (65 mg iron) tablet Take 1 tablet by mouth once daily with a meal. 100 tablet 2 4 Active docusate (COLACE) 100 mg capsule Take 1 capsule by mouth 2 times daily if needed for Constipation. 100 capsule 4 Active ibuprofen (ADVIL; MOTRIN) 600 mg tablet Take 1 tablet by mouth every 6 hours if needed for Pain. Maximum of 3200 mg in 24 hours. 30 tablet 4 Active acetaminophen (TYLENOL) 325 mg tablet Take 1-2 tablets by mouth every 6 hours if needed for Pain. Max acetaminophen dose: 4000mg in 24 hrs. 100 tablet 4 Active ascorbic acid (VITAMIN C) 250 mg tablet Take 1 tablet by mouth once daily. 100 tablet 2 4 Active Breast Pump - Purchase For home use. Gestation age at delivery: 37 weeks. Reason for need: . Length of need: 2 months 1 Device 0 4 Active Breast Pump-Rental For home use. Gestation age at delivery: 37 weeks. Reason for need: . Length of need: 2 months 1 Device 0 4 Active Active Problems Problem Noted Date Diagnosed Date Obesity in , delivered 10/21/2013 Non-Northern Irish speaking patient 10/21/2013 Grand multiparity with current 014 Short interval between pregn ancies complicating , antepartum 10/20/2013 UTI (lower urinary tract infection) 10/20/2013 Anemia complicating 10/20/2013 Vaginal delivery 10/20/2013 Insufficient care 10/10/2013 Overview (10/10/2013): None until 10/10/2013 History of gestational diabe kristin in prior , currently 10/10/2013 Oligohydramnios 11/17/2012 Resolved Problems Problem Noted Date Diagnosed Date Resolved Date Hx of hemorrhage, currently 10/20/2013 10/21/2013 Maternal morbid obesity, antepartum 11/18/2012 10/21/2013 GDM (gestational diabetes mellitus) 11/18/2012 10/10/2013 Immunizations Immunization Administration Dates Next Due Influenza A (H1N1), [...] drink = 0.6 oz pur e alcohol) Comments Unknown Sex and Gender Information Value Date Recorded Sex Assigned at Not on file Legal Sex Female 7:07 AM COMFORT STATION ATTENDANT Gender Identity Not on file Sexual Orientation [...] oz) F Vag Livin g 8 9 CHET JamisonBG Delivery Location:[facility] 2013 Term 37w 0d 3.09 kg (6 lb 13 oz) F Vag Livin g 8 9 CHET Jamison,BG Delivery Location:[facility] Last Filed Vital Signs Vital Sign Reading Time Taken Comments Blood Pressure 105/55 10/22/2013 9:00 AM CDT Pulse 78 10/22/2013 9:00 AM CDT Temperature 36.5 C (97.7 F) 10/22/2013 9:00 AM CDT Respiratory Rate 16 10/22/2013 9:00 AM CDT Oxygen Saturation 96% 10/21/2013 4:57 PM CDT Inhaled Oxygen Concentration - - Weight 107 kg (236 lb) 10/20/2013 8:39 AM CDT Height 162.6 cm (5' 4) 10/20/2013 8:39 AM CDT Body Mass Index 40.51 10/20/2013 8:39 AM CDT Plan of Treatment Health Maintenance Due Date Last Done Comments Tetanus booster 1994 Depression screening for age 12+ 1995 HIV for age 15-65 1998 BMI (ht and wt on same day) for age 18+ 2001 Hepatitis C screening for age 18-79 2001 Hepatitis B series for 19+ (1 of 3 - 19+ 3-dose series) 2002 Pap test for age 21-65 04/08/2022 9, 03/26/2019, 03/26/2019, Additional history exists COVID-19 vaccine series (2023- season) 2024 06/11/2021, 10/31/2020, 10/10/2020 Influenza Vaccine (#1) 2025 04/14/2009 Pneumococcal series for age 6-49 Aged Out No longer eligible based on patient's age to complete this topic Procedures Procedure Name Priority Date/Time Associated Diagnosis Comments DOBBY LOOM FIXER THIN PREP PAP SCREEN IMAGED Routine 04/08/2019 10:00 AM COMFORT STATION ATTENDANT from Last 3 Months or Most Recently Relevant to Health Maintenance Results * DOBBY LOOM FIXER THIN PREP PAP SCREEN IMAGED (04/08/2019 10:00 AM COMFORT STATION ATTENDANT) Case Report Gynecologic Cytology Report Case: [id number] Authorizing Provider: Unknown, Doctor Collected: 04/08/2019 1000 Ordering Location: [facility] Received: 04/10/2019 1348 First Screen: Zachery Love Specimen: DOBBY LOOM FIXER ThinPrep Vial Screening, Cervical/Vaginal 04/19/2019 3:37 PM COMFORT STATION ATTENDANT [facility] INTERPRETATION/ RESULT NEGATIVE FOR INTRAEPITHELIAL LESION OR MALIGNANCY (NIL) (none) 04/19/2019 3:37 PM COMFORT STATION ATT[address]ANT [facility] at 1537 COMFORT STATION ATTENDANT ORGANISM(S) Shift in claribel suggestive of bacterial vaginosis 04/19/2019 3:37 PM COMFORT STATION ATTENDANT [facility] SPECIMEN ADEQUACY Satisfactory for evaluation Endocervical component present 04/19/2019 3:37 PM COMFORT STATION ATT[address]ANT [facility] HPV REQUEST HPV if ASCUS 04/19/2019 3:37 PM COMFORT STATION ATT[address]ANT [facility] Date of LMP 04/05/2019 04/19/2019 3:37 PM COMFORT STATION ATTENDANT [facility] Menstrual Status 04/19/2019 3:37 PM COMFORT STATION ATT[address]ANT [facility] Comment:heavy bleeding Automated Review Successful 04/19/2019 3:37 PM COMFORT STATION ATTENDANT [facility] Comment:Specimen processed s uccessfully by automated sap data analyst device, ThinPrep Imaging System, [employer] Note The pap test is a screening technique, not a diagnostic procedure. It is used primarily to screen for squamous cancers and precursor lesions. Published studies have shown that it is subject to both false negative and false positive results. The pap test should not be used as the sole means to diagnose or exclude pre-malignant and malignant lesions. Cytology is screened and interpreted at [facility], Central Laboratory - [address], [place] [address] and [facility] - [address]; [place] [address] and [facility] - [address]; [place] [address] and [facility] [address]; [place] [address] 04/19/2019 3:37 PM COMFORT STATION ATTENDANT [facility] Other (Cervical/Vagina l) 04/08/2019 10:00 AM COMFORT STATION ATTENDANT 04/10/2019 1:48 PM COMFORT STATION ATTENDANT us Doctor Unknown PATHOLOGY/CYTOLOGY Final Result [facility] [address] [place] [address], from Last 3 Months or Most Recently Relevant to Health Maintenance Insurance MEDICAID Advance Directives * Full Code (Latest Code Status on File) Date Activated Date Inactivated Comments 10/20/2013 8:57 AM 10/20/2013 8:04 PM * Full Code Date Activated Date Inactivated Comments 10/10/2013 4:12 PM 10/11/2013 5:08 PM * Full Code Date Activated Date Inactivated Comments 11/17/2012 1:48 PM 11/18/2012 4:27 AM Care Teams Casting And Pasting Supervisor Relationship Specialty Start Date End Date Hawa Matson MD PCP - General Unknown Physician Specialty 10/10/13
== END 2025-01-08 09:04 | disposition home or self-care (01) ==
LOC: US 09:03
PROVIDERS: PCP Family Medicine; Visit Provider Family Medicine
DX: R79.89 Other specified abnormal findings of blood chemistry (principal); K80.20 Calculus of gallbladder without cholecystitis without obstruction; K76.0 Fatty (change of) liver, not elsewhere classified
CPT/HCPCS: 76705; T1013